=== PATIENT | female | born 1945 | race Caucasian/White ===

== ENCOUNTER → 2018-06-09 07:51 | Outpatient (CLI) | payer OTHER, MEDICARE, SELFPAY | PROVIDERS: Family Provider Family Medicine; PCP Family Medicine; Visit Provider Obstetrics & Gynecology | DX: Z12.31 Encounter for screening mammogram for malignant neoplasm of breast (principal) | CPT/HCPCS: 77063; 77067 ==

== ENCOUNTER → 2018-07-21 08:19 | Outpatient (CLI) | payer OTHER, MEDICARE, SELFPAY ==
--- NOTE | 2018-07-21 08:27 | BD_ITS ---
STUDY: DUAL ENERGY X-RAY ABSORPTIOMETRY / DXA REASON FOR EXAM: Female, 73 years old. The patient is postmenopausal. Loss of height. TECHNIQUE: Bone Mineral Density (BMD) measurements of lumbar spine and bilateral hips were obtained. COMPARISON: Comparison is made with prior study dated July 02, 2002. FINDINGS: Lumbar Spine (L1-L4): g/cm2 (1.069) / T-score (-0.9) / Z-score (0.8) Findings are suggestive of normal bone density with a low fracture risk. Left Femur Total: g/cm2 (0.935) / T-score (-0.6) / Z-score (0.9) Left Femoral Neck: g/cm2 (0.861) / T-score (-1.3) / Z-score (0.5) Right Femur Total: g/cm2 (0.891) / T-score (-0.9) / Z-score (0.6) Right Femoral Neck: g/cm2 (0.855) / T-score (-1.3) / Z-score (0.4) The T-Scores on the most recent prior examination were: Lumbar Spine (L1-L4): There has been worsening of bone density since the previous examination. Left Femur Total: which represents a worsening of 10.1%. BD/Dexa Bone Density Study IMPRESSION: The patient is considered osteopenic as outlined below according to World Daniel Organization (WHO) criteria with a moderate fracture risk. There has been worsening of bone density since the previous examination. Reference Information: The T-score is the number of standard deviations above or below the standard which is normal for young adults at their peak bone mineral density. The World Health Organization (WHO) interprets the T-scores as follows: Above -1 Normal bone density Between -1 and -2.5 Osteopenia Equal to / or below -2.5 Osteoporosis As a practical clinical guideline, osteopenia may be graded as follows: Mild -1 through -1.5 Moderate -1.6 through -2.0 Severe -2.1 through -2.4 The Z-score is the number of standard deviations above or below age-matched controls. A Z-score of less than -1.5 would be considered abnormal. References: 1. NIH Osteoporosis and Related Bone Diseases http://www.osteo.org 2. International Society for Clinical Densitometry http://www.iscd.org 3. National Osteoporosis Foundation http://www.nof.org Electronically Signed: Antony Acevedo MD at 8:55 EDT Tel [phone], Service support ,
== END ==
PROVIDERS: Family Provider Family Medicine; PCP Family Medicine; Visit Provider Family Medicine
DX: Z78.0 Asymptomatic menopausal state (principal)
CPT/HCPCS: 77080

== ENCOUNTER → 2019-06-15 13:16 | Outpatient (CLI) | payer OTHER, MEDICARE, SELFPAY ==
--- NOTE | 2019-06-15 13:19 | BI_ITS ---
MAMMOGRAPHY - BILATERAL SCREENING REASON FOR EXAM: Female, 73 years old. Routine annual screening examination. PERTINENT HISTORY: Non-contributory. TECHNIQUE: Digital bilateral breast nikolai (3D mammographic acquisition) in the CC and MLO projections. 2-D mediolateral oblique (MLO) and craniocaudad (CC) views of both breasts were obtained. CAD: Full Field Digital Mammography with Computer Added Detection was performed. COMPARISON: Comparison is made with prior examination dated June 09, 2018 and June 02, 2017. FINDINGS: Breast Composition: The breasts are heterogeneously dense, which may obscure small masses. There are no dominant masses or suspicious calcifications. Stable small bilateral axillary lymph nodes. No other significant abnormalities are identified. There has been no significant change since the prior study. BI/SCREEN MAMM (CAD) W/NIKOLAI BILAT IMPRESSION: Stable bilateral screening mammogram. Yearly follow-up mammogram recommended. (A) ASSESSMENT CATEGORY: BIRADS Category 2: Benign. A letter regarding these results will be sent to the patient by the facility within 30 days. Approximately 10% of breast cancers are not detected by mammography. A normal mammogram should not delay biopsy of a clinically suspicious abnormality. [id number] Electronically Signed: Antony Acevedo, at 15:29 EDT , Service support ,
== END ==
PROVIDERS: Family Provider Family Medicine; PCP Family Medicine; Referring Provider Family Medicine; Visit Provider Family Medicine
DX: Z12.31 Encounter for screening mammogram for malignant neoplasm of breast (principal)
CPT/HCPCS: 77063; 77067

== ENCOUNTER → 2020-02-22 07:08 | Outpatient (CLI) | payer OTHER, MEDICARE, SELFPAY | PROVIDERS: PCP Family Medicine; Referring Provider Family Medicine; Visit Provider Family Medicine | DX: R19.7 Diarrhea, unspecified (principal) | CPT/HCPCS: 87177; 87209; 87506 ==

== ENCOUNTER → 2020-05-02 15:31 | Outpatient (CLI) | payer OTHER, MEDICARE, SELFPAY ==
[2020-05-02 17:56] LABS: AST(SGOT) 21 U/L (15-37); Alanine Aminotransfer ALT/SGPT 20 U/L (13-56); Alkaline Phosphatase 79 U/L (45-117); Anion Gap 3 (5-15); BUN 18 mg/dL (7-18); BUN/Creat Ratio 19.6 RATIO (10-20); CRP < 2.90 mg/L (0.0-3.0); Calcium,Total 9.1 mg/dL (8.5-10.1); Chloride 104 mmol/L (98-107); Creatinine, Serum 0.92 mg/dL (0.55-1.02); EST Glomerular Filtration Rate 64 mL/min (>60); Est Glom Filt Rate - Afr Amer 77 mL/min (>60); Glucose 78 mg/dL (74-106); Potassium 3.6 mmol/L (3.5-5.1); Sodium Level 138 mmol/L (136-145)
[2020-05-04 16:09] LABS: Endomysial Antibody IgA Negative (Negative)
[2020-05-04 18:22] LABS: Immunoglobulin A 453 mg/dL (64-422); t-Transglutaminase IgA <2 U/mL (0-3)
== END ==
PROVIDERS: PCP Family Medicine; Referring Provider Internal Medicine Gastroenterology; Visit Provider Internal Medicine Gastroenterology
DX: R19.7 Diarrhea, unspecified (principal)
CPT/HCPCS: 36415; 80053; 82784; 83516; 86140; 86255

== ENCOUNTER → 2020-06-22 11:50 | Outpatient (CLI) | payer OTHER, MEDICARE, SELFPAY ==
--- NOTE | 2020-06-22 11:54 | BI_ITS ---
MAMMOGRAPHY - BILATERAL SCREENING REASON FOR EXAM: Female, 74 years old. Routine annual screening examination. PERTINENT HISTORY: Non-contributory. TECHNIQUE: Digital bilateral breast nikolai (3D mammographic acquisition) in the CC and MLO projections. 2-D mediolateral oblique (MLO) and craniocaudad (CC) views of both breasts were obtained. CAD: Full Field Digital Mammography with Computer Added Detection was performed. COMPARISON: Comparison is made with prior examination dated 06/15/2019 and 06/09/2018. FINDINGS: Breast Composition: The breasts are heterogeneously dense, which may obscure small masses. There are no dominant masses or suspicious calcifications. No other significant abnormalities are identified. There has been no significant change since the prior study. BI/SCREEN MAMM (CAD) W/NIKOLAI BILAT IMPRESSION: Stable bilateral screening mammogram. Yearly follow-up mammogram recommended. (A) ASSESSMENT CATEGORY: BIRADS Category 1: Negative. A letter regarding these results will be sent to the patient by the facility within 30 days. Approximately 10% of breast cancers are not detected by mammography. A normal mammogram should not delay biopsy of a clinically suspicious abnormality. [id number] Electronically Signed: Antony Acevedo, at 13:02 EDT , Service support ,
== END ==
PROVIDERS: PCP Family Medicine; Referring Provider Family Medicine; Visit Provider Family Medicine
DX: Z12.31 Encounter for screening mammogram for malignant neoplasm of breast (principal)
CPT/HCPCS: 77063; 77067

== ENCOUNTER → 2020-07-25 13:55 | Outpatient (CLI) | payer OTHER, MEDICARE, SELFPAY ==
--- NOTE | 2020-07-25 14:00 | BD_ITS ---
STUDY: DUAL ENERGY X-RAY ABSORPTIOMETRY / DXA REASON FOR EXAM: Female, 75 years old. [employer] -- HX OF HRT -- TAKES CALCIUM -- HAS BEEN ON FOSAMAX x2 YRS -- DOES HIGH AMOUNT OF EXERCISE -- MIKI OF 0.5 INCH TECHNIQUE: Bone Mineral Density (BMD) measurements of lumbar spine and bilateral hips were obtained. COMPARISON: Comparison is made with prior examination dated 07/21/2018. FINDINGS: Lumbar Spine (L1-L4): g/cm2 (1.085) / T-score (-0.7) / Z-score (1.0) Findings are suggestive of normal bone density with a low fracture risk. Increased kyphosis. Left Femur Total: g/cm2 (0.949) / T-score (-0.5) / Z-score (1.2) Left Femoral Neck: g/cm2 (0.914) / T-score (-0.9) / Z-score (0.9) Right Femur Total: g/cm2 (0.931) / T-score (-0.6) / Z-score (1.0) Right Femoral Neck: g/cm2 (0.912) / T-score (-0.9) / Z-score (0.9) The T-Scores on the most recent prior examination were: Lumbar Spine (L1-L4): There has been improvement of bone density since the previous examination. Left Femur Total: which represents an improvement of 1.5%. Right Femur Total: which represents an improvement of 4.5%. BD/Dexa Bone Density Study IMPRESSION: The patient is considered normal as outlined below according to World Daniel Organization (WHO) criteria with a low fracture risk. There has been improvement of bone density since the previous examination. Reference Information: The T-score is the number of standard deviations above or below the standard which is normal for young adults at their peak bone mineral density. The World Health Organization (WHO) interprets the T-scores as follows: Above -1 Normal bone density Between -1 and -2.5 Osteopenia Equal to / or below -2.5 Osteoporosis As a practical clinical guideline, osteopenia may be graded as follows: Mild -1 through -1.5 Moderate -1.6 through -2.0 Severe -2.1 through -2.4 The Z-score is the number of standard deviations above or below age-matched controls. A Z-score of less than -1.5 would be considered abnormal. References: 1. NIH Osteoporosis and Related Bone Diseases www osteo.org 2. International Society for Clinical Densitometry www iscd.org 3. National Osteoporosis Foundation www nof.org Electronically Signed: Antony Acevedo, at 14:05 EDT , Service support ,
== END ==
PROVIDERS: PCP Family Medicine; Referring Provider Family Medicine; Visit Provider Family Medicine
DX: Z78.0 Asymptomatic menopausal state (principal); Z13.820 Encounter for screening for osteoporosis
CPT/HCPCS: 77080

== ENCOUNTER → 2020-11-28 09:54 | Outpatient (CLI) | payer OTHER, MEDICARE, SELFPAY ==
--- NOTE | 2020-11-28 09:58 | RAD_ITS ---
STUDY: X-RAY - RIGHT SHOULDER REASON FOR EXAM: Female, 75 years old. Right shoulder pain for about a week TECHNIQUE: 4 view(s) of the shoulder. COMPARISON: None. FINDINGS: Normal glenohumeral articulation. Normal acromioclavicular joint. Normal acromion. Normal humeral head and visualized proximal humerus. There is periarticular soft tissue calcification consistent with a calcific tendinitis. Normal visualized pulmonary apex. RAD/Shoulder min 2 Views IMPRESSION: Calcific tendinitis. Electronically Signed: Antony Acevedo MD at 10:19 EST , Service support ,
== END ==
PROVIDERS: PCP Family Medicine; Referring Provider Family Medicine; Visit Provider Family Medicine
DX: M25.519 Pain in unspecified shoulder (principal)
CPT/HCPCS: 73030

== ENCOUNTER 2020-12-20 15:00 | Outpatient (RCR) | payer OTHER, MEDICARE, SELFPAY ==
--- NOTE | 2020-12-01 16:48 | HP.PTEVAL_ITS ---
Patient's Visit Information ROSHAN NEW is a 75 year old F referred to Physical Therapy by Dr. Em Barrett MD with a diagnosis of R shoulder strain. Date of Evaluation: 12/01/20 Physical Therapist: ISAURA Rosenberg - Visit Plan Frequency: 2x /Week Duration: 6 Weeks Plan: 2X/ week for 6 weeks for postural exercises, PROM>AAROM>AROM, scapular strength, RC strength, US and STM to calm down inflammation with HEP. Pt was super painful and could only tolerate PROM and AAROM supine ER and AAROM wand standing B arm extension behind her back. - Subjective Pt thinks that she did 2 things to cause her shoulder to hurt.... 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 She started doing [employer] with weights overhead and the same day it was icy and she went out to pound the ice and scoop it up and did not feel anything happend but the next few days she started with a lot of pain. She has improved since Friday. She is doing 3 advils and iceing 4 times per day. She is no longer in pain at rest. The pain is around the lateral shoulder. She has no neck pain and she does have some weakness in her shoulder. She hurts to lay on R shoulder. No Numbness and tingling. When it was at its worst she could not lift her hand to the mouse. She gave her a pain shot in her him. - Pain Right shoulder pain Pain Intensity (Out of 10): 2 Pain Intensity Range: 7 Comment: with movement - Objective R handed R 45# and L 40#. R shoulder flex 70 degrees, ABD 70 degrees, IR L1, ER 32 degrees... increase pain with all attempt at elevation. L shoulder flex WFL , abd WFL, ER 65 degrees and IR T6. Palpation: tender over the lateral/ anterior shoulder. L shoulder MMT 4/5 all planes. R shoulder NT due to pain. Discussed posture and to avoid any movment across her body. Continue ICING - Goals Goal 1:: I HEP Goal Time Frame: 4-6 Weeks Goal 2:: Be able to reach overhead at DC with no pain with the R arm Goal Time Frame: 4-6 Weeks Goal 3:: Increase R shoulder strength to 4/5 all planes without pain Goal Time Frame: 4-6 Weeks Goal 4:: Be able to use her R arm with 50% less pain Goal Time Frame: 4-6 Weeks - Rehabilitation Potential Rehabilitation Potential: Good - Anticipated Interventions Patient/Client Instruction: Educate patient on: Condition, Plan of Care For the Purpose of:: To decrease pain, To decrease swelling/inflammation, To i ncrease ROM, To improve nutrient delivery to tissue, To improve muscle performance and motor function, To improve ability to perform ADL's, To increase tolerance to activity/condition/position, To improve performance and independence with ADL's, To decrease level of supervision to perform tasks, To improve health of tissue, To decrease soft tissue restriction, To increase flexibility/ROM Therapeutic Exercise to Include: Strength training, Postural training, Flexibilty training, Neuromotor development, Passive ROM, Active ROM, Scapular Strength/Stabilization For the Purpose of:: To decrease pain, To increase ROM, To improve nutrient delivery to tissue, To improve muscle performance and motor function, To improve ability to perform ADL's, To increase tolerance to activity/condition/position, To improve performance and independence with ADL's, To decrease level of supervision to perform tasks, To improve health of tissue, To decrease soft tissue restriction, To increase flexibility/ROM Manual Therapy Techniques to Include: Passive ROM, Soft tissue mobilization For the Purpose of:: To decrease pain, To decrease swelling/inflammation, To increase ROM, To improve nutrient delivery to tissue, To improve muscle performance and motor function, To improve ability to perform ADL's, To increase tolerance to activity/condition/position, To improve performance and independence with ADL's, To decrease level of supervision to perform tasks, To improve health of tissue, To decrease soft tissue restriction, To increase flexibility/ROM Ultrasound (thermal/non thermal): Yes For the Purpose of:: To decrease pain, To decrease swelling/inflammation, To increase ROM, To improve nutrient delivery to tissue Thank you for the opportunity to evaluate your patient. For Medicare and Medicare HMO plans, please review the plan of care and approve it. It will need to be FAXED BACK to us at [phone] for Medicare purposes. For Medicare only, by signing this I certify the plan of care. Please let me know if there are questions or concerns regarding this plan of care. Physician Signature: Date:
--- NOTE | 2021-01-03 13:18 | HP.PT.NRP ---
ROSHAN NEW was seen in my office for initial evaluation on 12/01/20. The following Plan of Care was established for this patient: Initial Frequency: 2x /Week Initial Duration: 6 Weeks Patient/Client Instruction: Educate patient on: Condition, Plan of Care For the Purpose of:: To decrease pain, To decrease swelling/inflammation, To increase ROM, To improve nutrient delivery to tissue, To improve muscle performance and motor function, To improve ability to perform ADL's, To increase tolerance to activity/condition/position, To improve performance and independence with ADL's, To decrease level of supervision to perform tasks, To improve health of tissue, To decrease soft tissue restriction, To increase flexibility/ROM Therapeutic Exercise to Include: Strength training, Postural training, Flexibilty training, Neuromotor development, Passive ROM, Active ROM, Scapular Strength/Stabilization For the Purpose of:: To decrease pain, To increase ROM, To improve nutrient delivery to tissue, To improve muscle performance and motor function, To improve ability to perform ADL's, To increase tolerance to activity/condition/position, To improve performance and independence with ADL's, To decrease level of supervision to perform tasks, To improve health of tissue, To decrease soft tissue restriction, To increase flexibility/ROM Manual Therapy Techniques to Include: Passive ROM, Soft tissue mobilization For the Purpose of:: To decrease pain, To decrease swelling/inflammation, To increase ROM, To improve nutrient delivery to tissue, To improve muscle performance and motor function, To improve ability to perform ADL's, To increase tolerance to activity/condition/position, To improve performance and independence with ADL's, To decrease level of supervision to perform tasks, To improve health of tissue, To decrease soft tissue restriction, To increase flexibility/ROM Ultrasound (thermal/non thermal): Yes For the Purpose of:: To decrease pain, To decrease swelling/inflammation, To increase ROM, To improve nutrient delivery to tissue This patient was last seen in our office 12/20/20. Pertinent comments regarding their Physical therapy will appear below: Pt has been doing her exercises at home and she is 98% better and will be discharged at this time. At this point I will be discontinuing this patient from physical therapy. I would be happy to see this patient again in the future if found appropriate by the physician. Thank you! Rosmery Huertas, MPT
== END 2020-12-20 19:00 | disposition home or self-care (01) ==
LOC: PT 15:00
PROVIDERS: PCP Family Medicine; Referring Provider Family Medicine; Visit Provider Family Medicine
DX: S46.911D Strain of unspecified muscle, fascia and tendon at shoulder and upper arm level, right arm, subsequent encounter (principal)
CPT/HCPCS: 97035; 97110; 97161

== ENCOUNTER → 2021-06-25 11:21 | Outpatient (CLI) | payer OTHER, MEDICARE, SELFPAY ==
--- NOTE | 2021-06-25 11:25 | BI_ITS ---
MAMMOGRAPHY - BILATERAL SCREENING REASON FOR EXAM: Female, 75 years old. Routine annual screening examination. PERTINENT HISTORY: Non-contributory. TECHNIQUE: Digital bilateral breast nikolai (3D mammographic acquisition) in the CC and MLO projections. 2-D mediolateral oblique (MLO) and craniocaudad (CC) views of both breasts were obtained. CAD: Full Field Digital Mammography with Computer Added Detection was performed. COMPARISON: Comparison is made with prior study 09/21/2020 06/15/2019. FINDINGS: Breast Composition: The breasts are heterogeneously dense, which may obscure small masses. There are no dominant masses or suspicious calcifications. Stable small benign-appearing bilateral axillary lymph nodes. No other significant abnormalities are identified. There has been no significant change since the prior study. BI/SCRN MAMM (CAD)W/NIKOLAI BILAT IMPRESSION: Stable bilateral screening mammogram. Yearly follow-up mammogram recommended. (A) ASSESSMENT CATEGORY: BIRADS Category 2: Benign. A letter regarding these results will be sent to the patient by the facility within 30 days. Approximately 10% of breast cancers are not detected by mammography. A normal mammogram should not delay biopsy of a clinically suspicious abnormality. [id number] Electronically Signed: Antony Acevedo MD at 12:34 EDT , Service support ,
== END ==
PROVIDERS: PCP Family Medicine; Visit Provider Family Medicine
DX: Z12.31 Encounter for screening mammogram for malignant neoplasm of breast (principal)
CPT/HCPCS: 77063; 77067

== ENCOUNTER → 2022-07-01 | Outpatient (CLI) | payer OTHER, MEDICARE, SELFPAY ==
--- NOTE | 2022-07-01 07:12 | BI_ITS ---
MAMMOGRAPHY - BILATERAL SCREENING 3-D TOMOSYNTHESIS REASON FOR EXAM: Female, 76 years old. screening PERTINENT HISTORY: No significant family history. TECHNIQUE: 2-D mammograms and 3-D Tomosynthesis of the breast (s) were performed. CAD was performed. COMPARISON: 06/25/2021 FINDINGS: The breast composition is heterogeneously dense that can obscure small breast masses. Scattered benign calcifications are seen. No dense spiculated masses or suspicious microcalcifications are identified. No architectural distortion is identified. There is no skin thickening or retraction. There has been no significant change since the prior study. BI/SCRN MAMM (CAD)W/NIKOLAI BILAT IMPRESSION: No mammographic signs of malignancy. Routine yearly mammograms recommended. ASSESSMENT CATEGORY: BIRADS Category 1: Negative. A letter regarding these results will be sent to the patient by the facility within 30 days. FOLLOW UP RECOMMENDATION: Yearly follow up mammogram recommended. (A) Approximately 10% of breast cancers are not detected by mammography. A normal mammogram should not delay biopsy of a clinically suspicious abnormality. Electronically Signed: Baldemar Marroquin MD at 8:08 EDT ,
== END | disposition home or self-care (01) ==
LOC: OPBI 07:09
PROVIDERS: PCP Family Medicine; Referring Provider Family Medicine; Visit Provider Family Medicine
DX: Z12.31 Encounter for screening mammogram for malignant neoplasm of breast (principal)
CPT/HCPCS: 77063; 77067

== ENCOUNTER → 2023-07-09 | Outpatient (CLI) | payer OTHER, MEDICARE, SELFPAY ==
--- NOTE | 2023-07-09 07:10 | BI_ITS ---
MAMMOGRAPHY - BILATERAL SCREENING REASON FOR EXAM: Female, 78 years old. Routine annual screening examination. PERTINENT HISTORY: Non-contributory. TECHNIQUE: Digital bilateral breast nikolai (3D mammographic acquisition) in the CC and MLO projections. 2-D mediolateral oblique (MLO) and craniocaudad (CC) views of both breasts were obtained. CAD: Full Field Digital Mammography with Computer Added Detection was performed. COMPARISON: Comparison is made with prior study July 01, 2022 and June 25, 2021. FINDINGS: Breast Composition: The breasts are heterogeneously dense, which may obscure small masses. There are no dominant masses or suspicious calcifications. Stable small benign-appearing bilateral axillary lymph nodes. No other significant abnormalities are identified. There has been no significant change since the prior study. BI/SCRN MAMM (CAD)W/NIKOLAI BILAT IMPRESSION: Stable bilateral screening mammogram. Yearly follow-up mammogram recommended. (A) ASSESSMENT CATEGORY: BIRADS Category 2: Benign. A letter regarding these results will be sent to the patient by the facility within 30 days. Approximately 10% of breast cancers are not detected by mammography. A normal mammogram should not delay biopsy of a clinically suspicious abnormality. [id number] Electronically Signed: Antony Acevedo MD at 8:41 EDT ,
== END | disposition home or self-care (01) ==
LOC: OPBI 07:09
PROVIDERS: PCP Family Medicine; Referring Provider Family Medicine; Visit Provider Family Medicine
DX: Z12.31 Encounter for screening mammogram for malignant neoplasm of breast (principal)
CPT/HCPCS: 77063; 77067

== ENCOUNTER → 2023-09-16 | Outpatient (CLI) | payer OTHER, MEDICARE, SELFPAY ==
[2023-09-16 09:28] LABS: Erythrocyte Sedimentation Rate 9 mm/hr (0-30)
[2023-09-16 09:29] LABS: Absolute Lymphocyte Count 1.76 X10^3/uL (0.83-4.51); Absolute Neutrophil Count 2.7 X10^3/uL (2.0-7.7); Basophil# 0.04 X10^3/uL; Basophil% 0.7 % (0-1); Eosinophil# 0.11 X10^3/uL; Eosinophils% 2.1 % (0-5); Hematocrit 41.7 % (37-47); Hemoglobin 13.4 g/dL (12.0-15.0); Lymphocyte # 1.76 X10^3/ul (0.83-4.51); Lymphocyte % 32.9 % (19-41); Mean Corp Hgb Conc 32.1 g/dL (32-36); Mean Corpuscular Hgb 30.8 pg (27.0-32.0); Mean Corpuscular Volume 95.9 fL (81-99); Monocyte# 0.69 X10^3/uL; Monocyte% 12.9 % (0-10); NRBC Flagged by Analyzer 0 % (0-5); Neutrophil # 2.74 X10^3/uL (2.7-7.7); Neutrophil % 51.2 % (47-70); Platelet Count 254 K/mm3 (150-450); RBC Distribution Width CV 12.7 % (11.6-14.6); Red Blood Count 4.35 M/mm3 (4.2-5.4); White Blood Count 5.4 K/mm3 (4.4-11.0)
[2023-09-16 09:52] LABS: AST(SGOT) 20 U/L (15-37); Alanine Aminotransfer ALT/SGPT 22 U/L (13-56); Albumin, Serum 3.8 g/dL (3.2-5.0); Alkaline Phosphatase 74 U/L (45-117); Anion Gap 4 (5-15); BUN 11 mg/dL (7-18); BUN/Creat Ratio 13.8 RATIO (10-20); CRP < 2.90 mg/L (0.0-3.0); Calcium,Total 9.2 mg/dL (8.5-10.1); Chloride 107 mmol/L (98-107); EST Glomerular Filtration Rate 74 mL/min (>60); Est Glom Filt Rate - Afr Amer 90 mL/min (>60); Free T3 2.7 pg/mL (2.18-3.98); Glucose 83 mg/dL (74-106); LDH 180 U/L (84-246); Potassium 3.7 mmol/L (3.5-5.1); Protein, Total 7.8 g/dL (6.4-8.2); Sodium Level 140 mmol/L (136-145); T4 Free Direct 0.98 ng/dL (0.76-1.46); Thyroid Stim Hormone (TSH) 3.26 uIU/mL (0.358-3.74)
[2023-09-19 18:07] LABS: Anti-Centromere B Ab <0.2 AI (0.0-0.9); Anti-Chromatin 0.2 AI (0.0-0.9); Anti-Jo <0.2 AI (0.0-0.9); Anti-Scleroderma-70 AB <0.2 AI (0.0-0.9); Anti-dsDNA Ab 1 IU/mL (0-9); Beef <0.10 kU/L (Class 0); Chocolate <0.10 kU/L (Class 0); Codfish <0.10 kU/L (Class 0); Corn <0.10 kU/L (Class 0); Egg, Whole <0.10 kU/L (Class 0); Milk (Cow) <0.10 kU/L (Class 0); Mussels <0.10 kU/L (Class 0); Peanut <0.10 kU/L (Class 0); Pork <0.10 kU/L (Class 0); RNP Ab <0.2 AI (0.0-0.9); SJOGREN'S Anti-SS-A test 5.7 AI (0.0-0.9); SJOGREN'S Anti-SS-B test < 0.2 AI (0.0-0.9); Salmon <0.10 kU/L (Class 0); Shrimp <0.10 kU/L (Class 0); Smith Ab <0.2 AI (0.0-0.9); Soybean <0.10 kU/L (Class 0); Tuna <0.10 kU/L (Class 0); Wheat <0.10 kU/L (Class 0)
[2023-09-20 00:06] LABS: Cytoplasmic Ab (C-ANCA) <1:20 titer (Neg:<1:20); Endomysial Antibody IgA Negative (Negative); Immunoglobulin A 481 mg/dL (64-422); Immunoglobulin E 11 IU/mL (6-495); Immunoglobulin G 1098 mg/dL (586-1602); Immunoglobulin M 217 mg/dL (26-217); Perinuclear Ab (P-ANCA) <1:20 titer (Neg:<1:20); t-Transglutaminase IgA <2 U/mL (0-3)
[2023-09-22 00:07] LABS: Calprotectin, Stool 136 ug/g (0-120)
[2023-09-25 14:09] LABS: Giardia Lamblia, Stool EIA Negative (Negative); Pancreatic Elastase, Fecal 170 (>200)
== END | disposition home or self-care (01) ==
PROVIDERS: PCP Family Medicine; Referring Provider Internal Medicine Gastroenterology; Visit Provider Internal Medicine Gastroenterology
DX: K52.831 Collagenous colitis (principal); K59.09 Other constipation
CPT/HCPCS: 36415; 80053; 82653; 82784; 82785; 83516; 83615; 83630; 83993; 84439; 84443; 84481; 85025; 85652; 86003; 86005; 86140; 86225; 86235; 86255; 86256; 86335; 87177; 87209; 87329; 87493; 87506

== ENCOUNTER → 2023-09-20 | Outpatient (CLI) | payer OTHER, MEDICARE, SELFPAY ==
--- NOTE | 2023-09-20 07:56 | RAD_ITS ---
STUDY: XR Abdomen 1 View 09/20/2023 8:09 AM REASON FOR EXAM: Female, 78 years old. ABDOMINAL PAIN SITZ day 3 TECHNIQUE: XR Abdomen 1 View COMPARISON: None FINDINGS: There is single sitz marker in the left upper quadrant. There is no demonstrated free abdominal air. The visualized liver, spleen and kidneys are grossly normal in size and morphology. Normal soft tissue structures. There are diffuse degenerative changes of the visualized lumbar spine. RAD/Abdomen Single View IMPRESSION: There is single sitz marker in the left upper quadrant. Electronically Signed: Lane Cosby MD at 16:28 EST ,
== END | disposition home or self-care (01) ==
LOC: RAD 07:53
PROVIDERS: PCP Family Medicine; Referring Provider Internal Medicine Gastroenterology; Visit Provider Internal Medicine Gastroenterology
DX: K52.831 Collagenous colitis (principal); K59.09 Other constipation
CPT/HCPCS: 74018

== ENCOUNTER → 2023-09-22 | Outpatient (CLI) | payer OTHER, MEDICARE, SELFPAY ==
--- NOTE | 2023-09-22 07:55 | RAD_ITS ---
INDICATION: SITZ day 5 EXAMINATION/TECHNIQUE: X-RAY - XR Abdomen 1 View COMPARISON: Prior study dated: 09/20/2023. FINDINGS: BOWEL GAS PATTERN: Non-obstructive. Single marker is again seen in the region of the splenic flexure essentially unchanged in position since previous exam. FREE AIR: Not assessed on a single supine view. ORGANOMEGALY: Not seen. CALCIFICATIONS: No abnormal calcifications observed. LOWER CHEST: No acute pathology. BONES AND SOFT TISSUES: No acute pathology. RAD/Abdomen Single View IMPRESSION: Single Sitz marker in stable position since the previous exam. Electronically Signed: Baljeet Chen MD at 9:00 EST ,
== END | disposition home or self-care (01) ==
LOC: RAD 07:47
PROVIDERS: PCP Family Medicine; Referring Provider Internal Medicine Gastroenterology; Visit Provider Internal Medicine Gastroenterology
DX: K52.831 Collagenous colitis (principal); K59.09 Other constipation
CPT/HCPCS: 74018

== ENCOUNTER → 2023-12-02 | Outpatient (CLI) | payer OTHER, MEDICARE, SELFPAY ==
--- OUTSIDE RECORDS SUMMARY | 2023-12-02 06:46 | XMS RPT_ITS | CCD ---
Author Name Unknown Address [address] [place] [address] Organization [facility] Care Team Providers Care Appointment Specialist Name Role Phone Em Barrett Primary Care Provider [phone] GREG LEAVITT Attending Unavailable LUIS SALES Referring Unavailable EM BARRETT Primary Care Unavailable GREG LEAVITT Attending Unavailable LUIS SALES Referring Unavailable EM BARRETT Primary Care Unavailable GREG LEAVITT Attending Unavailable LUIS SALES Referring Unavailable EM BARRETT Primary Care Unavailable LUIS SALES Attending Unavailable EM BARRETT Primary Care Unavailable Medications Completed/Discontinued Medications Medication Drug Class(es) Dates Sig (Normalized) Sig (Original) aspirin 81 mg delayed release oral tablet (5 sources) Platelet Aggregation Inhibitor, Nonsteroidal Anti-inflammatory Drug Start: 07-17-2011 take 1 tablet by mouth once daily aspirin, enteric coated (ECOTRIN LOW STRENGTH) 81 mg ORAL EC tablet Take 1 tablet by mouth once daily. 0 07/17/2011 Active Problems Active Problems Problem Classification Problem Date Documented Da te Episodic/Chronic Menopausal disorders (5 sources) Atrophic vaginitis; Translations: [Postmenopausal atrophic vaginitis] Onset: 01-22-2012 01-22-2012 Chronic Nonmalignant breast conditions (5 sources) Fibrocystic disease of breast; Translations: [Diffuse cystic mastopathy of unspecified breast] Onset: 01-10-2010 01-10-2010 Chronic Other connective tissue disease (6 sources) Muscle weakness; Translations: [Muscle weakness (generalized)] Onset: 06-17-2023 06-17-2023 Episodic Other gastrointestinal disorders (9 sources) Incontinence of feces; Translations: [Full incontinence of feces] Onset: 07-09-2021 07-09-2021 Episodic Past or Other Problems Problem Classification Problem Date Documented Da te Episodic/Chronic Allergic reactions (10 sources) Radiation-induced dermatosis; Translations: [Other skin changes due to chronic exposure to nonionizing radiation] Onset: 11-28-2006 08-02-2010 Episodic Other circulatory disease (5 sources) Non-neoplastic nevus; Translations: [Nevus, non-neoplastic] Onset: 05-31-2008 05-31-2008 Episodic Other gastrointestinal disorders (1 source) Full incontinence of feces; Translations: [Incontinence of feces, unspecified fecal incontinence type] Onset: 07-09-2021 Episodic Other inflammatory condition of skin (5 sources) Pruritus of skin; Translations: [Pruritus, unspecified] Onset: 08-29-2008 08-29-2008 Episodic Other injuries and conditions due to external causes (5 sources) Superficial injury; Translations: [Unspecified multiple injuries, initial encounter] Onset: 08-29-2008 08-29-2008 Episodic Other screening for suspected conditions (not mental disorders or infectious disease) (5 sources) Mammography abnormal; Translations: [Other abnormal and inconclusive findings on diagnostic imaging of breast] Onset: 04-20-2009 04-20-2009 Episodic Other skin disorders (5 sources) Seborrheic keratosis; Translations: [Other seborrheic keratosis] Onset: 11-28-2006 11-28-2006 Episodic Other skin disorders (5 sources) Disorder of skin pigmentation; Translations: [Disorder of pigmentation, unspecified] Onset: 05-31-2008 05-31-2008 Episodic Other skin disorders (5 sources) Scar conditions and fibrosis of skin; Translations: [Scar conditions and fibrosis of skin] Onset: 10-25-2008 10-25-2008 Episodic Viral infection (5 sources) Verruca vulgaris; Translations: [Viral wart, unspecified] Onset: 11-28-2006 11-28-2006 Episodic Results Test Name Value Interpretation Reference Range Facil ity Vital Signs Date Time Vital Sign Value Performing Clinician Laith ray 06-24-2022 09:26-0400 Body height 160.5 cm Luis Sales MD Work Phone: [facility] 06-24-2022 09:26-0400 Body weight 63.78 kg Luis Sales MD Work Phone: [facility] 06-24-2022 09:26-0400 Diastolic blood pressure 78 mm[Hg] Luis Sales MD Work Phone: [facility] 06-24-2022 09:26-0400 Systolic blood pressure 130 mm[Hg] Luis Sales MD Work Phone: [facility] Encounters Encounter Date Encounter Type Care Provider Facility Start: 07-15-2023 End: 07-15-2023 ambulatory Greg Duke PT Work Phone: [facility] Physical Therapy Procedures Date Procedure Procedure Detail Performing Clinician Start: 06-22-2020 Mammography Luis denise MD Work Phone: Start: 05-11-2020 Colonoscopy Luis denise MD Work Phone: Start: 01-15-2012 Lipid 1996 panel - S ap or Plasma Greg Duke PT Work Phone: Plan of Treatment Date Care Activity Detail Author Start: 05-11-2030 Colonoscopy COLONOSCOPY [facility] Start: 05-11-2030 COLORECTAL CANCER SCREENING COLORECTAL CANCER SCREENING [facility] Start: 06-13-2023 Influenza vaccination INFLUENZA (#1) [facility] Start: 11-16-2022 Covid-19 Vaccine (6 - Moderna series) Covid-19 Vaccine (6 - Moderna series) [facility] Start: 10-13-2022 ADVANCE DIRECTIVE DISCUSSION ADVANCE DIRECTIVE DISCUSSION [facility] Start: 10-13-2022 DEPRESSION ASSESSMENT DEPRESSION ASS ESSMENT [facility] Start: 06-13-2022 Influenza vaccination INFLUENZA (#1) [facility] Start: 10-13-2021 ADVANCE DIRECTIVE DISCUSSION ADVANCE DIRECTIVE DISCUSSION [facility] Start: 06-22-2021 Mammography MAMMOGRAM [facility] Start: 01-14-2017 Lipid 1996 panel - S ap or Plasma Lipid Screening [facility] Start: 01-14-2017 LIPID SCREEN LIPID SCREEN [facility] Start: 2012 Pneumococcal Vaccine : 65+ (1 - PCV) Pneumococcal Vaccine: 65+ (1 - PCV) [facility] Start: 2012 PNEUMOCOCCAL: 65+ (1 - PCV) PNEUMOCOCCAL: 65+ (1 - PCV) [facility] Start: 1997 SHINGRIX VACCINE (1 of 2) SHINGRIX V ACCINE (1 of 2) [facility] Start: 1992 COLOGUARD (FIT-DNA) COLOGUARD (FIT-D NA) [facility] Start: [address] COLONOGRAPHY [facility] Start: 1992 DIABETES SCREEN DIABETES SCREEN [facility] Start: 1992 Diabetes Screening Diabetes Screenin g [facility] Start: 1992 FECAL OCCULT BLOOD FECAL OCCULT BLOO D [facility] Start: 1992 SIGMOIDOSCOPY SIGMOIDOSCOPY [facility] Start: 1966 Urine microalbumin profile [facility] Start: 1965 HEPATITIS C SCREENING HEPATITIS C SC REENING [facility] Start: 1959 Adult depression scr eening assessment DEPRESSION SCREENING [facility] Start: [birth year]06-1946 COVID-19 VACCINE (#1) COVID-19 VACCI NE (#1) [facility] Payers Date Payer Category Payer Medicare [id number] 2021 Private Health Insurance HUMANA HUMANA MEDICARE SUPPLEMENT [id number] 2021-Present [phone] [address] [address] [place] [address] Indemnity [id number] 2020 Unknown [facility] [place] PPO [employer] [id number] 2020-Present [phone] [address] [place] [address] PPO [id number] 2020 Unknown [id number] 2012 Medicare [id number] 2012 Medicare [id number] Social History Date Type Detail Facility Start: [facility] Start: 06-24-2022 Tobacco use and exposure Smoke less tobacco non-user [facility] Start: 06-24-2022 End: 06-26-2023 Alcohol intake Current drinker of alcohol (finding) [facility] Start: 01-22-2012 History SDOH Alcohol Comment occasional 4 per month [facility] Start: 1945 Sex Assigned At Not on file C [facility] Start: 06-24-2022 End: 06-17-2023 History of Social function [facility] Start: 06-24-2022 End: 06-17-2023 Tobacco use panel [facility] National Score (1-10 0), lower number is lower risk 66 [facility] Start: 07-03-2021 Gender identity Identifies as female gender (finding) [facility] Start: 07-03-2021 Sexual orientation Heterosexual (fin ding) [facility] Clinical Notes 07-09-2021 to 07-15-2023 Greg Leavitt, PT - 07/15/2023 6:53 AM Greg Turner, PT - 07/01/2023 11:06 AM Greg Turner, PT - 06/17/2023 8:45 AM Darci Sales MD - 06/24/2022 9:16 AM EDT Note Date & Type Note Facility 07-15-2023 Note HNO ID: [id number] Author: Greg Leavitt, PT Service: ? Author Type: Physical Therapist Type: Progress Notes Filed: 07/15/2023 7:21 AM Note Text: Episode Visit Count: 3 Therapist That Will Accept/Oversee The Plan Of Care: Greg Duke Start of Care Date: 06/17/23 Onset Date: 05/17/23 Plan of Care Certification Date: 06/17/23 Next Certification Due Date: 08/16/23 Patient Identified by Name and Date of : Yes REHABILITATION AND SPORTS THERAPY PHYSICAL THERAPY DISCONTINUANCE OF CARE PLAN OF CARE UPDATE: Assessment: Leatha Zamudio is discontinued from Physical Therapy services due to goal achievement and maximal benefit.. Pelvic floor muscle assessment deferred this date due to patient request. Patient was seen for 3 visits from Start of Care Date: 06/17/23 to 07/15/2023 and treatment included: Therapeutic exercise and Self-fpc management. Goals for Episode of Care: created on 06/17/23 Updated on: 07/15/23 Patient demonstrates independence and compliance with home exercise Program.-MET Patient to increase strength of pelvic floor to Power: at least 3/5 in order to improve bowel control.-N/T Patient to increase endurance of pelvic floor to at least 6 seconds to improve bowel control.-N/T Patient reports increased ability to fully empty bowels at least 75% of the time to normalize bowel function.-MET Patient reports at least 75% improvement in fecal incontinence compared to IE.-MOSTLY MET Patient Goals: improve bowel function SUBJECTIVE: Pt reports excellent compliance with HEP. Pt reports one episode of fecal smearing since last session, no other fecal incontinence. Pt reports thinking bread and brussel sprouts have been negatively impacting bowels, is trying to be more aware of diet. Pt reports improved ability to empty bowels when using a squatty potty, doesn't feel like she needs to strain and is able to empty well. Pt reports feeling comfortable continuing HEP on her own at home. Pain: Pain Pain Level: 0 Post Treatment Pain Post Treatment Pain Level: 0 PROMIS Scales Higher is Better 07/13/2023 06/16/2023 2021 Phys Func - Score 47 (within normal limits) 48 (within normal limits) 51 (within normal limits) Phys Func - Percentile 38 % 42 % 54 % Self-Eff Symptom - Score 37 (Low) 46 (Average) 43 (Average) Self-Eff Symptom - Percentile 10 % 34 % 24 % T-scores: mean of general population = 50. 5 points is clinically meaningfully difference Percentiles provide an indication of how the patient's score ranks in relation to the general population. Higher percentile rankings indicate better function/quality of life. 50th percentile is the average of the general population and indicates half of respondents had a worse score. OBJECTIVE MEASURES WITH LEVEL OF FUNCTION: Pelvic Floor Incomplete emptying: No Fecal incontinence: Yes Smearing/Staining: (1x since last visit) Pelvic Floor Muscle Assessment Consent for pelvic assessment/testing and treatment: (PF mm assessment deferred due to pt request.) TREATMENT: Self-Assisted Management: 1: Reassessment 2: Reviewed benefits of meeting with a nutritioninst for further assessment regarding diet, impact of diet on bowels 3: Reviewed importance of continued good compliance with HEP 4: Discussed discharge planning Skilled Intervention: Skilled judgment in the selection of proper modification for activity of daily living/home management based on clinical presentation, deficits, and needs. Billing Self-Care/Home Management Treatment Minutes: 25 Skilled Treatment Time Minutes (timed and untimed codes): 25 Total Session Time (minutes): 25 Session Start Time : 652 Session Stop Time : 717 Greg Duke, PT [facility] 07-15-2023 History of Presen t illness Narrative Episode Visit Count: 3 Therapist That Will Accept/Oversee The Plan Of Care: Greg Duke Start of Care Date: 06/17/23 Onset Date: 05/17/23 Plan of Care Certification Date: 06/17/23 Next Certification Due Date: 08/16/23 Patient Identified by Name and Date of : Yes REHABILITATION AND SPORTS THERAPY PHYSICAL THERAPY DISCONTINUANCE OF CARE PLAN OF CARE UPDATE: Assessment: Leatha Zamudio is discontinued from Physical Therapy services due to goal achievement and maximal benefit.. Pelvic floor muscle assessment deferred this date due to patient request. Patient was seen for 3 visits from Start of Care Date: 06/17/23 to 07/15/2023 and treatment included: Therapeutic exercise and Self-fpc management. Goals for Episode of Care: created on 06/17/23 Updated on: 07/15/23 Patient demonstrates independence and compliance with home exercise Program.-MET Patient to increase strength of pelvic floor to Power: at least 3/5 in order to improve bowel control.-N/T Patient to increase endurance of pelvic floor to at least 6 seconds to improve bowel control.-N/T Patient reports increased ability to fully empty bowels at least 75% of the time to normalize bowel function.-MET Patient reports at least 75% improvement in fecal incontinence compared to IE.-MOSTLY MET Patient Goals: improve bowel function SUBJECTIVE: Pt reports excellent compliance with HEP. Pt reports one episode of fecal smearing since last session, no other fecal incontinence. Pt reports thinking bread and brussel sprouts have been negatively impacting bowels, is trying to be more aware of diet. Pt reports improved ability to empty bowels when using a squatty potty, doesn't feel like she needs to strain and is able to empty well. Pt reports feeling comfortable continuing HEP on her own at home. Pain: Pain Pain Level: 0 Post Treatment Pain Post Treatment Pain Level: 0 PROMIS Scales Higher is Better 07/13/2023 06/16/2023 2021 Phys Func - Score 47 (within normal limits) 48 (within normal limits) 51 (within normal limits) Phys Func - Percentile 38 % 42 % 54 % Self-Eff Symptom - Score 37 (Low) 46 (Average) 43 (Average) Self-Eff Symptom - Percentile 10 % 34 % 24 % T-scores: mean of general population = 50. 5 points is clinically meaningfully difference Percentiles provide an indication of how the patient's score ranks in relation to the general population. Higher percentile rankings indicate better function/quality of life. 50th percentile is the average of the general population and indicates half of respondents had a worse score. OBJECTIVE MEASURES WITH LEVEL OF FUNCTION: Pelvic Floor Incomplete emptying: No Fecal incontinence: Yes Smearing/Staining: (1x since last visit) Pelvic Floor Muscle Assessment Consent for pelvic assessment/testing and treatment: (PF mm assessment deferred due to pt request.) TREATMENT: Self-Assisted Management: 1: Reassessment 2: Reviewed benefits of meeting with a nutritioninst for further assessment regarding diet, impact of diet on bowels 3: Reviewed importance of continued good compliance with HEP 4: Discussed discharge planning Skilled Intervention: Skilled judgment in the selection of proper modification for activity of daily living/home management based on clinical presentation, deficits, and needs. Billing Self-Care/Home Management Treatment Minutes: 25 Skilled Treatment Time Minutes (timed and untimed codes): 25 Total Session Time (minutes): 25 Session Start Time : 652 Session Stop Time : 717 Greg Duke PT documented in this encounter [facility] 07-01-2023 Note HNO ID: [id number] Author: Greg Leavitt PT Service: ? Author Type: Physical Therapist Type: Progress Notes Filed: 07/01/2023 11:38 AM Note Text: Episode Visit Count: 2 Therapist That Will Accept/Oversee The Plan Of Care: Greg Duke Start of Care Date: 06/17/23 Onset Date: 05/17/23 Plan of Care Certification Date: 06/17/23 Next Certification Due Date: 08/16/23 Patient Identified by Name and Date of : Yes REHABILITATION AND SPORTS THERAPY PHYSICAL THERAPY TREATMENT NOTE ASSESSMENT: Leatha Zamudio tolerated the session with no issues. She demonstrated difficulty with incomplete bowel emptying depending on diet, intermittent compliance with toileting techniques discussed. The patient will continue to benefit from ongoing skilled physical therapy to progress toward set goals. PLAN FOR NEXT VISIT: reassessment SUBJECTIVE: Pt reports making good progress up until two days ago after eating too many brussel sprouts. Pt reports some stool on pad after having a bowel movement after eating certain foods. Pt reports increased stress levels with 's health, work, her own health, etc. Pt reports good compliance with HEP exercises but has not been consistent with toileting techniques to fully empty bowels without straining. Pain: Pain Pain Level: 0 Post Treatment Pain Post Treatment Pain Level: 0 OBJECTIVE MEASURES WITH LEVEL OF FUNCTION: Pelvic Floor Incomplete emptying: Sometimes Fecal incontinence: Yes Smearing/Staining: (2x since last visit) TREATMENT: Therapeutic Exercise: 1: Verbally reviewed last week's HEP 2: Pt verbalized all exercises she started doing again from previous episode of care, does not feel need to review or add more exercises 3: *diaphragmatic breathing Skilled Intervention: Patient was educated in proper exercise technique and purpose for exercises. Provided written instruction for home exercise program to facilitate proper performance and compliance. Self-Assisted Management: 1: Reviewed toileting techniques to fully empty bowels without straining 2: *self-colon massage 3: Reviewed benefits of fiber intake to combat FI, benefits of meeting with supervisor pumping for more specific diet plan Skilled Intervention: Skilled judgment in the selection of proper modification for activity of daily living/home management based on clinical presentation, deficits, and needs. Provided written instruction for activities of daily living techniques to facilitate proper performance and compliance. Billing Therapeutic Exercise Treatment Minutes: 4 Self-Care/Home Management Treatment Minutes: 23 Skilled Treatment Time Minutes (timed and untimed codes): 27 Total Session Time (minutes): 27 Session Start Time : 1106 Session Stop Time : 1133 Greg Duke, PT [facility] 07-01-2023 History of Presen t illness Narrative Episode Visit Count: 2 Therapist That Will Accept/Oversee The Plan Of Care: Greg Duke Start of Care Date: 06/17/23 Onset Date: 05/17/23 Plan of Care Certification Date: 06/17/23 Next Certification Due Date: 08/16/23 Patient Identified by Name and Date of : Yes REHABILITATION AND SPORTS THERAPY PHYSICAL THERAPY TREATMENT NOTE ASSESSMENT: Leatha Zamudio tolerated the session with no issues. She demonstrated difficulty with incomplete bowel emptying depending on diet, intermittent compliance with toileting techniques discussed. The patient will continue to benefit from ongoing skilled physical therapy to progress toward set goals. PLAN FOR NEXT VISIT: reassessment SUBJECTIVE: Pt reports making good progress up until two days ago after eating too many brussel sprouts. Pt reports some stool on pad after having a bowel movement after eating certain foods. Pt reports increased stress levels with 's health, work, her own health, etc. Pt reports good compliance with HEP exercises but has not been consistent with toileting techniques to fully empty bowels without straining. Pain: Pain Pain Level: 0 Post Treatment Pain Post Treatment Pain Level: 0 OBJECTIVE MEASURES WITH LEVEL OF FUNCTION: Pelvic Floor Incomplete emptying: Sometimes Fecal incontinence: Yes Smearing/Staining: (2x since last visit) TREATMENT: Therapeutic Exercise: 1: Verbally reviewed last week's HEP 2: Pt verbalized all exercises she started doing again from previous episode of care, does not feel need to review or add more exercises 3: *diaphragmatic breathing Skilled Intervention: Patient was educated in proper exercise technique and purpose for exercises. Provided written instruction for home exercise program to facilitate proper performance and compliance. Self-Assisted Management: 1: Reviewed toileting techniques to fully empty bowels without straining 2: *self-colon massage 3: Reviewed benefits of fiber intake to combat FI, benefits of meeting with supervisor pumping for more specific diet plan Skilled Intervention: Skilled judgment in the selection of proper modification for activity of daily living/home management based on clinical presentation, deficits, and needs. Provided written instruction for activities of daily living techniques to facilitate proper performance and compliance. Billing Therapeutic Exercise Treatment Minutes: 4 Self-Care/Home Management Treatment Minutes: 23 Skilled Treatment Time Minutes (timed and untimed codes): 27 Total Session Time (minutes): 27 Session Start Time : 1106 Session Stop Time : 1133 Greg Duke PT documented in this encounter [facility] 09-14-2023 Note HNO ID: [id number] Author: Luis Sales MD Service: ? Author Type: Physician Type: Progress Notes Filed: 06/26/2023 4:16 PM Note Text: Non Emergency Services Ambulance Driver offered: Patient declines. Leatha is a 77 year old who presents for an annual gynecologic exam. Postmenopausal: Yes - s/p PAUL in 1998 HRT use: No. 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 Charles Wang at [facility] [place] HYSTEROSCOPY, DIAGNOSTIC (SEPARATE LAPS ABD PRTMANDOMENTUM DX W/WO SPEC BR/WA SPX Laparoscopy/TUBAL STERILIZATION PAST SURGICAL HISTORY OF 10/09/2017 laser surgeries on left eye RT/LT HEART CATHETERS 02/2006 CC AND CA, R AND L heart SIGMOIDOSCOPY 05/15/2021 TOTAL ABDOMINAL HYSTERECT W/WO RMVL TUBE OVARY 1998 Hysterectomy, PAUL/bso FAMILY HISTORY Adopted: Yes Problem Relation Age of Onset Stroke Mother Heart Mother 90 Cancer Father STOMACH AT AGE 93 SOCIAL HISTORY Social History Tobacco Use Smoking status: Never Smokeless tobacco: Never Vaping Use Vaping Use: Never used Substance Use Topics Alcohol use: Yes Comment: occasional 4 per month Drug use: No REVIEW OF SYSTEMS Abdomen: fecal incontinence much improved with pelvic floor PT Bladder: No dysuria, gross hematuria, urinary frequency, urinary urgency, or incontinence Breast: No breast lumps, nipple d/c, overlying skin changes, redness or skin retraction Allergies and current medication updated:Yes EXAM: BP 108/64 Ht 5' 3.19 (1.61m) Wt 141 lb 3.2 oz (64.0kg) BMI 24.86 kg/(m2). GENERAL: pleasant, female in no apparent distress BREAST: soft, non-tender, symmetric, no dominant mass, normal nipple-areolar complex, no lymphadenopathy, and no nipple discharge CHEST: Normal inspiratory effort ABDOMEN: soft, non-tender, and no masses PELVIC: external genitalia normal, no vulvar lesions, normal appearing perineal body and perianal region; atrophic vaginitis BIMANUAL: no adnexal masses, non-tender, and uterus surgically absent RECTOVAGINAL: rectovaginal exam negative for any masses or nodularity. NEURO: alert and oriented x3,exam grossly non-focal EXTREMITIES: normal ASSESSMENT/PLAN: 1) Health maintenance: Pap/HPV screening no longer needed Mammogram - ordered by pcp AND getting this month at [facility] Colon cancer screening: up to date with screening AND follows with [facility]: followed by PCP 2) Follow up one year or sooner as needed Luis Sales MD [facility] 06-17-2023 Note HNO ID: [id number] Author: Greg Leavitt, PT Service: ? Author Type: Physical Therapist Type: Progress Notes Filed: 06/17/2023 9:35 AM Note Text: Episode Visit Count: 1 Therapist That Will Accept/Oversee The Plan Of Care: Greg Duke Start of Care Date: 06/17/23 Onset Date: 05/17/23 Plan of Care Certification Date: 06/17/23 Next Certification Due Date: 08/16/23 Patient Identified by Name and Date of : Yes [facility] PHYSICAL THERAPY EVALUATION PLAN OF CARE: Assessment: Leatha Zamudio presents with chief complaint of fecal incontinence that interferes with bowel function . She presents with impairments in decreased pelvic floor strength; impaired bowel function. PROMIS? (Patient-Reported Outcomes Measurement Information System) scores were reviewed and physical function domain and self efficacy domain identified as within normal limits. Prognosis for therapy is Good due to: current objective clinical presentation . She will benefit from skilled therapy services to meet the goals established for this plan of care as noted below. Goals for Episode of Care: created on 06/17/23 through 08/16/23 Patient demonstrates independence and compliance with home exercise program. Patient to increase strength of pelvic floor to Power: at least 3/5 in order to improve bowel control. Patient to increase endurance of pelvic floor to at least 6 seconds to improve bowel control. Patient reports increased ability to fully empty bowels at least 75% of the time to normalize bowel function. Patient reports at least 75% improvement in fecal incontinence compared to IE. Patient Goals: improve bowel function Planned Interventions, Frequency, and Duration: Current Frequency: 1x every other week Duration: 4 weeks (reassess at 4 weeks and progress as indicated) Total Number of Visits Planned: 2 Planned Treatment Interventions: Therapeutic exercise (49175), Manual therapy (63188), Self-fpc management (80888), Patient/Family/Caregiver Education PLAN FOR NEXT VISIT: progress strengthening exercises as tolerated Patient demonstrates good understanding of plan of care and treatment. The above goals and plan of care were discussed and agreed upon by patient/family. SUBJECTIVE: Pt reports having a bowel flare up about a month ago after eating a lot of fiber. Pt reports having uncontrollable diarrhea for a few days after that. Pt reports having to wear a pad after having a bowel movement, doesn't feel like she fully empties bowels. Pt reports restarting previous PFPT HEP a week ago, has not done them consistantly since previous episode of PFPT before the last week. Pt reports not attempting squatty potty or toileting techniques discussed during last episode of care. 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 Recreation / Current Exercise: robert, walking Intake Information: Prescription present PAST MEDICAL HISTORY Diagnosis Date Abnormal mammogram, unspecified 2008 Anxiety disorder in conditions classified elsewhere Diverticulosis of colon (without mention of hemorrhage) Diverticulosis Diverticulosis of colon (without mention of hemorrhage) Fasciitis, unspecified PLANTAR Resolved with orthotics Insomnia, unspecified Internal hemorrhoids with other complication Internal hemorrhoids without mention of complication Microscopic colitis PAST SURGICAL HISTORY Procedure Laterality Date CATARACT EXTRACTION HX 2015 bilateral COLONOSCOPY FLX DX W/COLLJ SPEC WHEN PFRMD 06/29/2001 Colonoscopy WITH BIOPSY COLONOSCOPY FLX DX W/COLLJ SPEC WHEN PFRMD 07/17/2011 COLONOSCOPY FLX DX W/COLLJ SPEC WHEN PFRMD 05/11/2020 Dr. Charles Wang at [facility] [place] HYSTEROSCOPY, DIAGNOSTIC (SEPARATE LAPS ABD PRTMANDOMENTUM DX W/WO SPEC BR/WA SPX Laparoscopy/TUBAL STERILIZATION PAST SURGICAL HISTORY OF 10/09/2017 laser surgeries on left eye RT/LT HEART CATHETERS 02/2006 CC AND CA, R AND L heart SIGMOIDOSCOPY 05/15/2021 TOTAL ABDOMINAL HYSTERECT W/WO RMVL TUBE OVARY 1998 Hysterectomy, PAUL/bso Previous Treatment: Pelvic Floor Physical Therapy Falls Interview: No positive findings with falls interview Aquatic Screen: No Pain: Pain Pain Level: 0 Post Treatment Pain Post Treatment Pain Level: 0 PROMIS Scales Higher is Better 06/16/2023 2021 Phys Func - Score 48 (within normal limits) 51 (within normal limits) Phys Func - Percentile 42 % 54 % Self-Eff Symptom - Score 46 (Average) 43 (Average) Self-Eff Symptom - Percentile 34 % 24 % T-scores: mean of general population = 50. 5 points is clinically meaningfully difference Perc (more content not included)... [facility] 06-17-2023 History of Presen t illness Narrative Episode Visit Count: 1 Therapist That Will Accept/Oversee The Plan Of Care: Greg Duke Start of Care Date: 06/17/23 Onset Date: 05/17/23 Plan of Care Certification Date: 06/17/23 Next Certification Due Date: 08/16/23 Patient Identified by Name and Date of : Yes REH[facility]TS [facility]ERAPY PHYSICAL THERAPY EVALUATION PLAN OF CARE: Assessment: Leatha Zamudio presents with chief complaint of fecal incontinence that interferes with bowel function . She presents with impairments in decreased pelvic floor strength; impaired bowel function. PROMIS (Patient-Reported Outcomes Measurement Information System) scores were reviewed and physical function domain and self efficacy domain identified as within normal limits. Prognosis for therapy is Good due to: current objective clinical presentation . She will benefit from skilled therapy services to meet the goals established for this plan of care as noted below. Goals for Episode of Care: created on 06/17/23 through 08/16/23 Patient demonstrates independence and compliance with home exercise program. Patient to increase strength of pelvic floor to Power: at least 3/5 in order to improve bowel control. Patient to increase endurance of pelvic floor to at least 6 seconds to improve bowel control. Patient reports increased ability to fully empty bowels at least 75% of the time to normalize bowel function. Patient reports at least 75% improvement in fecal incontinence compared to IE. Patient Goals: improve bowel function Planned Interventions, Frequency, and Duration: Current Frequency: 1x every other week Duration: 4 weeks (reassess at 4 weeks and progress as indicated) Total Number of Visits Planned: 2 Planned Treatment Interventions: Therapeutic exercise (76233), Manual therapy (44801), Self-fpc management (83098), Patient/Family/Caregiver Education PLAN FOR NEXT VISIT: progress strengthening exercises as tolerated Patient demonstrates good understanding of plan of care and treatment. The above goals and plan of care were discussed and agreed upon by patient/family. SUBJECTIVE: Pt reports having a bowel flare up about a month ago after eating a lot of fiber. Pt reports having uncontrollable diarrhea for a few days after that. Pt reports having to wear a pad after having a bowel movement, doesn't feel like she fully empties bowels. Pt reports restarting previous PFPT HEP a week ago, has not done them consistantly since previous episode of PFPT before the last week. Pt reports not attempting squatty potty or toileting techniques discussed during last episode of care. 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 Recreation / Current Exercise: robert, walking Intake Information: Prescription present PAST MEDICAL HISTORY Diagnosis Date Abnormal mammogram, unspecified 2008 Anxiety disorder in conditions classified elsewhere Diverticulosis of colon (without mention of hemorrhage) Diverticulosis Diverticulosis of colon (without mention of hemorrhage) Fasciitis, unspecified PLANTAR Resolved with orthotics Insomnia, unspecified Internal hemorrhoids with other complication Internal hemorrhoids without mention of complication Microscopic colitis PAST SURGICAL HISTORY Procedure Laterality Date CATARACT EXTRACTION HX 2015 bilateral COLONOSCOPY FLX DX W/COLLJ SPEC WHEN PFRMD 06/29/2001 Colonoscopy WITH BIOPSY COLONOSCOPY FLX DX W/COLLJ SPEC WHEN PFRMD 07/17/2011 COLONOSCOPY FLX DX W/COLLJ SPEC WHEN PFRMD 05/11/2020 Dr. Charles Wang at [facility] [place] HYSTEROSCOPY, DIAGNOSTIC (SEPARATE LAPS ABD PRTM&OMENTUM DX W/WO SPEC BR/WA SPX Laparoscopy/TUBAL STERILIZATION PAST SURGICAL HISTORY OF 10/09/2017 laser surgeries on left eye RT/LT HEART CATHETERS 02/2006 CC & CA, R & L heart SIGMOIDOSCOPY 05/15/2021 TOTAL ABDOMINAL HYSTERECT W/WO RMVL TUBE OVARY 1998 Hysterectomy, PAUL/bso Previous Treatment: Pelvic Floor Physical Therapy Falls Interview: No positive findings with falls interview Aquatic Screen: No Pain: Pain Pain Level: 0 Post Treatment Pain Post Treatment Pain Level: 0 PROMIS Scales Higher is Better 06/16/2023 2021 Phys Func - Score 48 (within normal limits) 51 (within normal limits) Phys Func - Percentile 42 % 54 % Self-Eff Symptom - Score 46 (Average) 43 (Average) Self-Eff Symptom - Percentile 34 % 24 % T-scores: mean of general population = 50. 5 points is clinically meaningfully difference Percentiles provide an indication of how the patient's score ranks in relation to the general population. Higher percentile rankings indicate better function/quality of life. 50th percentile is the average of the general population and indicates half of respondents had a worse score. OBJECTIVE MEASURES WITH LEVEL OF FUNCTION: Pelvic Floor Urinary/Bowel History : Urinary History, Bowel History Difficulty starting stream: No Incomplete emptying: No Stress Incontinence: No Urgency: No Daytime Frequency (hours): forever if I need to Fluid Intake: Water, Coffee Water : I don't really measure, a lot Coffee: 1 Difficulty evacuating / Excessive Straining: No Incomplete emptying: Sometimes Bowel Movement Frequency: 1x/every other day Bowel Movement Consistency (Ramsey) : 7: Watery, no solid pieces, 6: Fluffy pieces with ragged edges, a mushy stool, 5: Soft blobs with clear cut edges, 4: Like a sausage or snake, smooth and soft Fecal incontinence: Yes Smearing/Stainin or more times per week Pelvic Floor Muscle Assessment Consent for pelvic assessment/testing and treatment: Patient was educated regarding pelvic floor physical therapy assessment/treatment which may include pelvic floor and girdle muscle assessment externally or internally (vaginal or rectal approach)., Patient verbalized consent for the above treatment approaches today. Patient understands they have control of the treatment and an opportunity to stop treatment at any time. Pelvic Floor Muscle Assessment: PERFECT, Muscle Dynamics Power: 2 Endurance: 3 Fast Reps: 5 Contracton Pressure: Weak squeeze, felt as flick at various points along finger surface, not all the way around Duration of Contraction: >1 to <3 seconds Recruitment of pelvic floor muscles: Coordinated Range of Motion: Normal Ability to Lengthen pelvic floor: Yes Pelvic Floor Manual Assessment Pelvic Floor Tenderness/Hyperactivity: Tested Vaginally in Tested Vaginally in : Supine/hooklying Superficial transverse perineal: Left (0/1) LE AROM R LE AROM: WFL L LE AROM: WFL LE Flexibility Flexibility: Hamstring Flexibility, Hip Adductor, Hip Internal Rotation Flexibility, Hip External Rotation Flexibility R Hamstring Flexibility: WNL L Hamstring Flexibility: WNL R Adductor Flexibility: WNL L Adductor Flexibility: WNL R Hip Internal Rotation Flexibility: WNL L Hip Internal Rotation Flexibility: WNL R Hip External Rotation Flexibility: WNL L Hip External Rotation Flexibility: WNL LE Strength Trunk Strength: Lower Abdominals: 4/5 R LE Strength: 5/5 L LE Strength: 5/5 Education: Education Learning Preferences: Demonstration, Explanation, Performance, Printed Materials Barriers: None Learning/educational needs: Home exercise program, Plan of Care Education Provided: Yes, see treatment interventions for education provided Education Provided To: Patient Education Mode/Type: Demonstration, Explanation/Discussion, Literature/Printed Materials, Performance Response to Education/Teach Back: States/Identifies, Return Demonstration TREATMENT: PT Treatment Interventions: Therapeutic Exercise, Self-Assisted Management Evaluation Therapeutic Exercise: 1: *quick kegals, 5x5 2: *kegal holds, 3sec hold with 3sec rest, 3x5 3: *isometric hip adduction, 2x10 4: *hooklying hip abduction, L4 TB, 2x10 Skilled Intervention: Patient was educated in proper exercise technique and purpose for exercises. Reviewed and educated patient on additions/changes for home exercise program as above (*). Skilled judgment was provided in selection of appropriate interventions. Provided written instruction for home exercise program to facilitate proper performance and compliance. Self-Assisted Management: 1: Reviewed importance of good compliance with HEP for progress with PT 2: Reviewed impact of weak mm on bowel function 3: Reviewed toileting techniques to fully empty bowels without straining 4: Reviewed importance of good stool consistency to combat FI, impact of diet on stool consistency, benefits of meeting with supervisor pumping for more detailed diet plan Skilled Intervention: Skilled judgment in the selection of proper modification for activity of daily living/home management based on clinical presentation, deficits, and needs. Provided written instruction for activities of daily living techniques to facilitate proper performance and compliance. Billing * Evaluation Low Complexity: 1 Unit Therapeutic Exercise Treatment Minutes: 11 Self-Care/Home Management Treatment Minutes: 14 Skilled Treatment Time Minutes (timed and untimed codes): 42 Total Session Time (minutes): 42 Session Start Time : 844 Session Stop Time : 926 Greg Duke, PT documented in this encounter [facility] 06-06-2023 Miscellaneous Notes Formattin g of this note might be different from the original. Patient notified. Transferred to PT PSS. Shanelle Davies RN Done Luis Sales MD See note below. Spoke to patient and she states she did pelvic floor therapy in the past for fecal incontinence and it did help then. She has been taking budesonide that was prescribed from her gastro provider for this, but feels she needs more help again. Annual scheduled with [facility] 06/26/23. Asking if [facility] can file that referral for her again? This was previously ordered 07/09/21. Aware provider back in office on 06/06/23. Shanelle Davies RN Patient is requesting a referral for pelvic floor therapy with physical therapist, Greg Ramirez. Please notify the patient when referral and ready to be scheduled. documented in this encounter [facility] 06-24-2022 History of Presen t illness Narrative Non Emergency Services Ambulance Driver offered: Patient declines. Leatha is a 76 year old who presents for an annual gynecologic exam without complaints. Postmenopausal: Yes - s/p PAUL 1998 HRT use: None currently but used in the past History of abnormal pap: No Last mammogram: gets at [facility] with pcp, normal 2020 per patient OB History T2 L2 SAB0 IAB0 Ectopic0 Multiple0 Live Births0 Comment: 2 vaginal deliveries [employer] History LMP: Hysterectomy Age at Menarche: Age at First : Age at Menopause: [employer] History Comments: Sexual Activity: Yes; Male; HYSTERECTOMY BSO Contraception: No contraception data on record PAST MEDICAL HISTORY Diagnosis Date Abnormal mammogram, unspecified 2008 Anxiety disorder in conditions classified elsewhere Diverticulosis of colon (without mention of hemorrhage) Diverticulosis Diverticulosis of colon (without mention of hemorrhage) Fasciitis, unspecified PLANTAR Resolved with orthotics Insomnia, unspecified Internal hemorrhoids with other complication Internal hemorrhoids without mention of complication Microscopic colitis PAST SURGICAL HISTORY Procedure Laterality Date CATARACT EXTRACTION HX 2015 bilateral COLONOSCOP W/ OR W/O [facility] SPEC 06/29/2001 Colonoscopy WITH BIOPSY COLONOSCOP W/ OR W/O [facility] SPEC 07/17/2011 COLONOSCOP W/ OR W/O [facility] SPEC 05/11/2020 Dr. Charles Wang at [facility] [place] HYSTEROSCOPY, DIAGNOSTIC (SEPARATE L'SCOPE DX W/WO BRUSHINGS/WASHINGS Laparoscopy/TUBAL STERILIZATION PAST SURGICAL HISTORY OF 10/09/2017 laser surgeries on left eye RT/LT HEART CATHETERS 02/2006 CC & CA, R & L heart SIGMOIDOSCOPY 05/15/2021 TOTAL ABDOM HYSTERECTOMY 1998 Hysterectomy, PAUL/bso FAMILY HISTORY Adopted: Yes Problem Relation Age of Onset Stroke Mother Heart Mother 90 Cancer Father STOMACH AT AGE 93 SOCIAL HISTORY Social History Tobacco Use Smoking status: Never Smokeless tobacco: Never Vaping Use Vaping Use: Never used Substance Use Topics Alcohol use: Yes Comment: occasional 4 per month Drug use: No REVIEW OF SYSTEMS Abdomen: fecal incontinence much improved with pelvic floor PT; now just seeing (GI) Bladder: No dysuria, gross hematuria, urinary frequency, urinary urgency, or incontinence Breast: No breast lumps, nipple d/c, overlying skin changes, redness or skin retraction Allergies and current medication updated:Yes EXAM: There were no vitals taken for this visit. GENERAL: pleasant, female in no apparent distress BREAST: soft, non-tender, symmetric, no dominant mass, normal nipple-areolar complex, no lymphadenopathy, and no nipple discharge CHEST: Normal inspiratory effort ABDOMEN: soft, non-tender, and no masses PELVIC: external genitalia normal, normal Bartholin's glands, urethra, [place]'s glands, no vulvar lesions, normal appearing perineal body and perianal region; atrophic vaginitis BIMANUAL: uterus surgically absent no adnexal masses, and non-tender RECTOVAGINAL: rectovaginal exam negative for any masses or nodularity. NEURO: alert and oriented x3,exam grossly non-focal EXTREMITIES: normal ASSESSMENT/PLAN: 1) Health maintenance: Pap/HPV screening no longer needed Mammogram - ordered by pcp (getting this week at [facility]) Nutrition, exercise and routine health maintenance exams reviewed. Colon cancer screening: up to date with screening - follows with [facility]: followed by PCP 2) Follow up one year or sooner as needed Luis Sales MD documented in this encounter [facility] documented as of this encounter (statuses as of 06/24/2022) [facility] History of Past illness Narrative* Problem Noted Date Diagnosed Date Resolved Date Muscle weakness 07/09/2021 08/06/2021 Scabies 08/29/2008 05/16/2011 RASH EXANTHEM//NONSPECIF SKIN ERUPT NEC 08/29/2008 05/16/2011 Inflamed seborrheic keratosis 11/28/2006 05/16/2011 documented as of this encounter (statuses as of 06/07/2023) [facility] History of Past illness Narrative* Problem Noted Date Diagnosed Date Resolved Date Muscle weakness 07/09/2021 08/06/2021 Scabies 08/29/2008 05/16/2011 RASH EXANTHEM//NONSPECIF SKIN ERUPT NEC 08/29/2008 05/16/2011 Inflamed seborrheic keratosis 11/28/2006 05/16/2011 documented as of this encounter (statuses as of 06/17/2023) [facility] History of Past illness Narrative* Problem Noted Date Diagnosed Date Resolved Date Muscle weakness 07/09/2021 08/06/2021 Scabies 08/29/2008 05/16/2011 RASH EXANTHEM//NONSPECIF SKIN ERUPT NEC 08/29/2008 05/16/2011 Inflamed seborrheic keratosis 11/28/2006 05/16/2011 documented as of this encounter (statuses as of 07/01/2023) [facility] History of Past illness Narrative* Problem Noted Date Diagnosed Date Resolved Date Muscle weakness 07/09/2021 08/06/2021 Scabies 08/29/2008 05/16/2011 RASH EXANTHEM//NONSPECIF SKIN ERUPT NEC 08/29/2008 05/16/2011 Inflamed seborrheic keratosis 11/28/2006 05/16/2011 documented as of this encounter (statuses as of 07/15/2023) [facility] Diagnosis Encounter for gynecological examination without abnormal finding- Primary Routine gynecological examination [facility] Diagnosis Incontinence of feces, unspecified fecal incontinence type- Primary [facility] Diagnosis Incontinence of feces, unspecified fecal incontinence type- Primary Muscle weakness Muscle weakness (generalized) [facility] Diagnosis Incontinence of feces, unspecified fecal incontinence type- Primary Muscle weakness Muscle weakness (generalized) [facility] Diagnosis Incontinence of feces, unspecified fecal incontinence type- Primary Muscle weakness Muscle weakness (generalized) documented in this encounter [facility] Reason for Referral Specialty Diagnoses / Procedures Referred By Pat richter Referred To Contact [facility] Diagnoses Incontinence of feces, unspecified fecal incontinence type Procedures CONSULT TO PHYSICAL THERAPY PHYSICAL THERAPY EVALUATION HIGH COMPLEX 45 MINS Luis Sales MD [address] [place] [address] [facility] [address] [address] Referral ID Status Reason Start Date Expiration Date Visits Requested Visits Authorized [id number] Pending Review Auto-Generat ed Referral 06/06/2023 06/05/2024 1 1 Summary Purpose Family History No Family History Records Found Advance Directives No Advanced Directives Records Found Additional Source Comments Source Comments (unrecognize d section and content) In the event this informatio n is protected by the Federal Confidentiality of Alcohol and Drug Abuse Patient Records regulations: The Federal rules restrict any use of the information to criminally investigate or prosecute any alcohol or drug abuse patient.[facility] event this information is protected by the Federal Confidentiality of Alcohol and Drug Abuse Patient Records regulations: The Federal rules restrict any use of the information to criminally investigate or prosecute any alcohol or drug abuse patient.[facility] the event this information is protected by the Federal Confidentiality of Alcohol and Drug Abuse Patient Records regulations: The Federal rules restrict any use of the information to criminally investigate or prosecute any alcohol or drug abuse patient.[facility] the event this information is protected by the Federal Confidentiality of Alcohol and Drug Abuse Patient Records regulations: The Federal rules restrict any use of the information to criminally investigate or prosecute any alcohol or drug abuse patient.[facility] the event this information is protected by the Federal Confidentiality of Alcohol and Drug Abuse Patient Records regulations: The Federal rules restrict any use of the information to criminally investigate or prosecute any alcohol or drug abuse patient.[facility] Reason for Visit (unrecogniz ed section and content) Specialty Diagnoses / Procedures Referred By Pat richter Referred To Contact [facility] Diagnoses Incontinence of feces, unspecified fecal incontinence type Procedures CONSULT TO PHYSICAL THERAPY PHYSICAL THERAPY EVALUATION HIGH COMPLEX 45 MINS THERAPEUTIC EXERCISES RE, EA 15 MIN. 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 Engineer [employer] [address] [place] [address] Referral ID Status Reason Start Date Expiration Date V isits Requested Visits Authorized [id number] Closed OON/Self Pay Override 06/06/2022 10/12/2022 1 1 Reason Comments Referral Request Physical Therapy Reason Comments PT Eval Care Teams (unrecognized sec tion and content) Appointment Specialist Relationship Specialty Start Date End Date Em Barrett PCP - General 04/05/05 Appointment Specialist Relationship Specialty Start Date End Date Em Barrett PCP - General 04/05/05 Appointment Specialist Relationship Specialty Start Date End Date Em Barrett PCP - General 04/05/05 Appointment Specialist Relationship Specialty Start Date End Date Em Barrett PCP - [facility] 04/05/05 INFORMATION SOURCE (unrecogn ized section and content) FOR RECORDS PERTAINING TO PATIENTS WHO ARE OR HAVE BEEN ENROLLED IN A CHEMICAL DEPENDENCY/SUBSTANCEABUSE PROGRAM, SOME INFORMATION MAY BE OMITTED. This clinical summary was aggregated from multiple sources. Caution should be exercised in using it in the provision of clinical care. This summary normalizes information from multiple sources, and as a consequence, information in this document may materially change the coding, format and clinical context of patient data. In addition, data may be omitted in some cases. CLINICAL DECISIONS SHOULD BE BASED ON THE PRIMARY CLINICAL RECORDS. [facility]. provides no warranty or guarantee of the accuracy or completeness of information in this document.
[2023-12-06 00:07] LABS: Calprotectin, Stool 377 ug/g (0-120)
[2023-12-07 01:06] LABS: Pancreatic Elastase, Fecal < 50 (>200)
== END | disposition home or self-care (01) ==
LOC: LAB 06:37
PROVIDERS: PCP Family Medicine; Referring Provider Internal Medicine Gastroenterology; Visit Provider Internal Medicine Gastroenterology
DX: K52.839 Microscopic colitis, unspecified (principal)
CPT/HCPCS: 82653; 83630; 83993; 87177; 87209; 87329; 87493; 87506

== ENCOUNTER → 2023-12-22 | Outpatient (CLI) | payer OTHER, MEDICARE, SELFPAY ==
--- NOTE | 2023-12-22 07:58 | MRI_ITS ---
EXAM: MR PELVIS WITHOUT AND WITH INTRAVENOUS CONTRAST CLINICAL INDICATION: severe fecal incontence TECHNIQUE: Multiplanar and multisequence MR images of the pelvis without and with intravenous contrast. Magnetic field strength 1.5 T. CONTRAST: 13 cc of Clariscan IV. COMPARISON: No relevant prior studies available. FINDINGS: APPENDIX: No evidence of acute appendicitis. INTRAPERITONEAL SPACE: Unremarkable. No ascites or other fluid collection. BLADDER: Unremarkable. OVARIES: Unremarkable as visualized. No mass or complex cyst. UTERUS/CERVIX: Hysterectomy. BONES/JOINTS: Unremarkable. No suspicious lytic or blastic abnormality. SOFT TISSUES: Unremarkable. No pelvic wall hernia. LYMPH NODES: Unremarkable. No enlarged lymph nodes. MRI/Pelvis W/WO Contrast IMPRESSION: 1. Hysterectomy. 2. No significant pelvic abnormality identified. Electronically Signed: Meek Guaman MD at 22:41 EDT ,
--- OUTSIDE RECORDS SUMMARY | 2023-12-22 08:16 | XMS RPT_ITS | CCD ---
Author Name Unknown Address [address] [place] [address] Organization [facility] Care Team Providers Care Casting Director Name Role Phone Em Barrett Primary Care Provider GREG LEAVITT Attending Unavailable LUIS SALES Referring [...] 160.5 cm Luis Sales MD Work Phone: [facility] 06-24-2022 09:26-0400 Body weight 63.78 kg Luis Sales MD Work Phone: [facility] 06-24-2022 09:26-0400 Diastolic blood pressure 78 mm[Hg] Luis Sales MD Work Phone: [facility] 06-24-2022 09:26-0400 Systolic blood pressure 130 mm[Hg] Luis Sales MD Work Phone: [facility] Encounters Encounter Date Encounter Type Care Provider Facility Start: 07-15-2023 End: 07-15-2023 ambulatory Greg Duke PT Work Phone: [facility] Physical Therapy Procedures Date Procedure Procedure Detail Performing Clinician Start: 06-22-2020 Mammography Luis denise MD Work Phone: Start: 05-11-2020 Colonoscopy Luis denise MD Work Phone: Start: 01-15-2012 Lipid 1996 panel - S ap or Plasma Greg Duke PT Work Phone: Plan of Treatment Date Care Activity Detail Author Start: 05-11-[address] [facility] Start: 05-11-2030 COLORECTAL CANCER SCREENING COLORECTAL CANCER SCREENING [facility] Start: 06-13-2023 Influenza vaccination INFLUENZA (#1) [facility] Start: 11-16-2022 Covid-19 Vaccine (6 - Moderna series) Covid-19 Vaccine (6 - Moderna series) [facility] Start: 10-13-2022 ADVANCE DIRECTIVE DISCUSSION ADVANCE DIRECTIVE DISCUSSION [facility] Start: 10-13-2022 DEPRESSION ASSESSMENT DEPRESSION ASS ESSMENT [facility] Start: 06-13-2022 Influenza vaccination INFLUENZA (#1) [facility] Start: 10-13-2021 ADVANCE DIRECTIVE DISCUSSION ADVANCE DIRECTIVE DISCUSSION [facility] Start: 06-22-[address] [facility] Start: 01-14-2017 Lipid 1996 panel - S ap or Plasma Lipid Screening [facility] Start: 01-14-2017 LIPID SCREEN LIPID SCREEN [facility] Start: 2012 Pneumococcal Vaccine : 65+ (1 - PCV) Pneumococcal Vaccine: 65+ (1 - PCV) [facility] Start: 2012 PNEUMOCOCCAL: 65+ (1 - PCV) PNEUMOCOCCAL: 65+ (1 - PCV) [facility] Start: 1997 SHINGRIX VACCINE (1 of 2) SHINGRIX V ACCINE (1 of 2) [facility] Start: 1992 COLOGUARD (FIT-DNA) COLOGUARD (FIT-D NA) [facility] Start: [address] COLONOGRAPHY [facility] Start: 1992 DIABETES SCREEN DIABETES SCREEN [facility] Start: 1992 Diabetes Screening Diabetes Screenin g [facility] Start: 1992 FECAL OCCULT BLOOD FECAL OCCULT BLOO D [facility] Start: 1992 SIGMOIDOSCOPY SIGMOIDOSCOPY [facility] Start: [address] [facility] Start: 1965 HEPATITIS C SCREENING HEPATITIS C SC REENING [facility] Start: 1959 Adult depression scr eening assessment DEPRESSION SCREENING [facility] Start: 01-06-1946 COVID-19 VACCINE (#1) COVID-19 VACCI NE (#1) [facility] Payers Date Payer Category Payer Medicare [id number] 2021 Private Health Insurance HUMANA HUMANA MEDICARE SUPPLEMENT [id number] 2021-Present [phone] [address] [address] [place] [address] Indemnity [id number] 2020 Unknown [facility] CE PLAN [place] PPO [place] [employer] [id number] 2020-Present [phone] [address] [place] [address] PPO [id number] 2020 Unknown [id number] 2012 Medicare [id number] 2012 Medicare [id number] Social History Date Type Detail Facility Start: 06-24-2022 Tobacco smoking stat RUSTIS Never smoked tobacco [facility] Start: 06-24-2022 Tobacco use and exposure Smoke less tobacco non-user [facility] Start: 06-24-2022 End: 06-26-2023 Alcohol intake Current drinker of alcohol (finding) [facility] Start: 01-22-2012 History SDOH Alcohol Comment occasional [address] [facility] Start: 1945 Sex Assigned At Not on file [facility] Start: 06-24-2022 End: 06-17-2023 History of [address] function [facility] Start: 06-24-2022 End: 06-17-[address] [facility] National Score (1-10 0), lower number is lower risk 66 [facility] Start: 07-03-2021 Gender identity Identifies as female gender (finding) [facility] Start: 07-03-2021 Sexual orientation Heterosexual (fin ding) [facility] Clinical Notes 07-09-2021 to 07-15-2023 Greg Leavitt, PT - 07/15/2023 6:53 AM Greg Turner, PT - 07/01/2023 11:06 AM Greg Turner, PT - 06/17/2023 8:45 AM Darci Sales MD - 06/24/2022 9:16 AM EDT Note Date & Type Note Facility 07-15-2023 Note HNO ID: [id number] Author: Greg Leavitt, PT Service: ? Author [...] 07/15/2023 and treatment included: Therapeutic exercise and Self-long term management. Goals for Episode of Care: created [...] assessment deferred due to pt request.) TREATMENT: Self-Mcfp Management: 1: Reassessment 2: Reviewed benefits of [...] Stop Time : 717 Greg Duke, PT [facility] 07-15-2023 History of Presen t illness Narrative [...] 07/15/2023 and treatment included: Therapeutic exercise and Self-long term management. Goals for Episode of Care: created [...] assessment deferred due to pt request.) TREATMENT: Self-Mcfp Management: 1: Reassessment 2: Reviewed benefits of [...] Greg Duke PT documented in this encounter [facility] 07-01-2023 Note HNO ID: [id number] Author: Greg Leavitt PT Service: ? Author [...] program to facilitate proper performance and compliance. Self-Mcfp Management: 1: Reviewed toileting techniques to fully empty bowels without straining 2: *self-colon massage 3: Reviewed benefits of fiber intake to combat FI, benefits of meeting with perfect bind machine operator for more specific diet plan Skilled Intervention: [...] Stop Time : 1133 Greg Duke, PT [facility] 07-01-2023 History of Presen t illness Narrative Episode Visit Count: 2 Therapist That Will Accept/Oversee The Plan Of Care: Gerg Duke Start of Care Date: 06/17/23 Onset [...] program to facilitate proper performance and compliance. Self-Mcfp Management: 1: Reviewed toileting techniques to fully empty bowels without straining 2: *self-colon massage 3: Reviewed benefits of fiber intake to combat FI, benefits of meeting with perfect bind machine operator for more specific diet plan Skilled Intervention: [...] Greg Duke PT documented in this encounter [facility] 09-14-2023 Note HNO ID: [id number] Author: Lusi Sales MD Service: ? Author Type: Physician Type: Progress Notes Filed: 06/26/2023 4:16 PM Note Text: Wheat Inspector offered: Patient declines. Leatha is a 77 year old who presents for an annual gynecologic exam. Postmenopausal: Yes - s/p PAUL in 1998 HRT use: No. History of abnormal pap: No Last mammogram: scheduled at [facility] this month OB History T2 L2 SAB0 IAB0 Ectopic0 Multiple0 Live Births0 Comment: 2 vaginal deliveries [employer] History LMP: Hysterectomy Age at Menarche: Age at First : Age at Menopause: [employer] History Comments: Sexual Activity: Not Asked; Male; [...] [facility] at [facility] [place] HYSTEROSCOPY, DIAGNOSTIC (SEPARATE LAPS ABD PRTMANDOMENTUM DX [...] by pcp AND getting this month at [facility] Colon cancer screening: up to date with screening AND follows with BMD: followed by PCP 2) Follow up one year or sooner as needed Luis Sales MD [facility] 06-17-2023 Note HNO ID: [id number] Author: Greg Leavitt, PT Service: ? 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 Self-Mcfp Management: 1: Reviewed importance of good compliance with HEP for progress with PT 2: Reviewed impact of weak mm on bowel function 3: Reviewed toileting techniques to fully empty bowels without straining 4: Reviewed importance of good stool consistency to combat FI, impact of diet on stool consistency, benefits of meeting with perfect bind machine operator for more detailed diet plan Skilled Intervention: [...] Greg Duke, PT documented in this encounter [facility] 06-06-2023 Miscellaneous Notes Formattin g of [...] to be scheduled. documented in this encounter [facility] 06-24-2022 History of Presen t illness Narrative Wheat Inspector offered: Patient declines. Leatha is a 76 year old who presents for an annual gynecologic exam without complaints. Postmenopausal: Yes - s/p PAUL 1998 HRT use: None currently but used in the past History of abnormal pap: No Last mammogram: gets at [facility] with pcp, normal 2020 per patient OB History T2 L2 SAB0 IAB0 Ectopic0 Multiple0 Live Births0 Comment: 2 vaginal deliveries [employer] History LMP: Hysterectomy Age at Menarche: Age at First : Age at Menopause: [employer] History Comments: Sexual Activity: Yes; Male; HYSTERECTOMY [...] HX 2015 bilateral COLONOSCOP W/ OR W/O [facility] SPEC 06/29/2001 Colonoscopy WITH BIOPSY COLONOSCOP W/ OR W/O [facility] SPEC 07/17/2011 COLONOSCOP W/ OR W/O [facility] SPEC 05/11/2020 Dr. Charles Wang at the [facility] [place] HYSTEROSCOPY, DIAGNOSTIC (SEPARATE L'SCOPE DX W/WO BRUSHINGS/WASHINGS [...] external genitalia normal, normal Bartholin's glands, urethra, Carbonado's glands, no vulvar lesions, normal appearing perineal body and perianal region; atrophic vaginitis BIMANUAL: uterus surgically absent no adnexal masses, and non-tender RECTOVAGINAL: rectovaginal exam negative for any masses or nodularity. NEURO: alert and oriented x3,exam grossly non-focal EXTREMITIES: normal ASSESSMENT/PLAN: 1) Health maintenance: Pap/HPV screening no longer needed Mammogram - ordered by pcp (getting this week at [facility]) Nutrition, exercise and routine health maintenance exams reviewed. Colon cancer screening: up to date with screening - follows with [facility]: followed by PCP 2) Follow up one year or sooner as needed Luis Sales MD documented in this encounter [facility] documented as of this encounter (statuses as of 06/24/2022) [facility] History of Past illness Narrative* Problem Noted Date Diagnosed Date Resolved Date Muscle weakness 07/09/2021 08/06/2021 Scabies 08/29/2008 05/16/2011 RASH EXANTHEM//NONSPECIF SKIN ERUPT NEC 08/29/2008 05/16/2011 Inflamed seborrheic keratosis 11/28/2006 05/16/2011 documented as of this encounter (statuses as of 06/07/2023) [facility] History of Past illness Narrative* Problem Noted Date Diagnosed Date Resolved Date Muscle weakness 07/09/2021 08/06/2021 Scabies 08/29/2008 05/16/2011 RASH EXANTHEM//NONSPECIF SKIN ERUPT NEC 08/29/2008 05/16/2011 Inflamed seborrheic keratosis 11/28/2006 05/16/2011 documented as of this encounter (statuses as of 06/17/2023) [facility] History of Past illness Narrative* Problem Noted Date Diagnosed Date Resolved Date Muscle weakness 07/09/2021 08/06/2021 Scabies 08/29/2008 05/16/2011 RASH EXANTHEM//NONSPECIF SKIN ERUPT NEC 08/29/2008 05/16/2011 Inflamed seborrheic keratosis 11/28/2006 05/16/2011 documented as of this encounter (statuses as of 07/01/2023) [facility] History of Past illness Narrative* Problem Noted Date Diagnosed Date Resolved Date Muscle weakness 07/09/2021 08/06/2021 Scabies 08/29/2008 05/16/2011 RASH EXANTHEM//NONSPECIF SKIN ERUPT NEC 08/29/2008 05/16/2011 Inflamed seborrheic keratosis 11/28/2006 05/16/2011 documented as of this encounter (statuses as of 07/15/2023) [facility] Diagnosis Encounter for gynecological examination without abnormal finding- Primary Routine gynecological examination [facility] Diagnosis Incontinence of feces, unspecified fecal incontinence type- Primary [facility] Diagnosis Incontinence of feces, unspecified fecal incontinence type- Primary Muscle weakness Muscle weakness (generalized) [facility] Diagnosis Incontinence of feces, unspecified fecal incontinence type- Primary Muscle weakness Muscle weakness (generalized) [facility] Diagnosis Incontinence of feces, unspecified fecal incontinence type- Primary Muscle weakness Muscle weakness (generalized) documented in this encounter [facility] Reason for Referral Specialty Diagnoses / Procedures Referred By Pat richter Referred To Contact [facility] Diagnoses Incontinence of feces, unspecified fecal incontinence type Procedures CONSULT TO PHYSICAL THERAPY PHYSICAL THERAPY EVALUATION HIGH COMPLEX 45 MINS Luis Sales MD [address] [place] [address] [facility] [address] [address] Referral ID Status Reason Start Date Expiration Date Visits Requested Visits Authorized [id number] Pending Review Auto-Generat ed Referral 06/06/2023 06/05/2024 [...] or prosecute any alcohol or drug abuse patient.[facility] the event this information is protected by the Federal Confidentiality of Alcohol and Drug Abuse Patient Records regulations: The Federal rules restrict any use of the information to criminally investigate or prosecute any alcohol or drug abuse patient.[facility] the event this information is protected by the Federal Confidentiality of Alcohol and Drug Abuse Patient Records regulations: The Federal rules restrict any use of the information to criminally investigate or prosecute any alcohol or drug abuse patient.[facility] the event this information is protected by the Federal Confidentiality of Alcohol and Drug Abuse Patient Records regulations: The Federal rules restrict any use of the information to criminally investigate or prosecute any alcohol or drug abuse patient.[facility] the event this information is protected by the Federal Confidentiality of Alcohol and Drug Abuse Patient Records regulations: The Federal rules restrict any use of the information to criminally investigate or prosecute any alcohol or drug abuse patient.[facility] Reason for Visit (unrecogniz ed section and content) Specialty Diagnoses / Procedures Referred By Pat richter Referred To Contact [facility] Diagnoses Incontinence of feces, unspecified fecal incontinence type Procedures CONSULT TO PHYSICAL THERAPY PHYSICAL THERAPY EVALUATION HIGH COMPLEX 45 MINS THERAPEUTIC EXERCISES RE, EA 15 MIN. Luis Sales MD [address] [place] [address] [facility] [place] [address] [place] [address] Referral ID Status Reason Start Date Expiration Date Visits Requested Visits Authorized [id number] Authorized Auto-Generat ed Referral 10/13/2022 10/12/2023 40 40 Reason Comments Physical Therapy Reason Comments Well Woman Specialty Diagnoses / Procedures Referred By Pat richter Referred To Contact NOTCH MACHINE OPERATOR Diagnoses annual Procedures WELLNESS EXAMS EST 65+ YRS annual Luis Sales MD [address] [place] [address] [employer] [address] [place] [address] Referral ID Status Reason Start Date Expiration Date V isits Requested Visits Authorized [id number] Closed OON/Self Pay Override 06/06/2022 10/12/2022 1 1 Reason Comments Referral Request Physical Therapy Reason Comments PT Eval Care Teams (unrecognized sec tion and content) Casting Director Relationship Specialty Start Date End Date Em Barrett PCP - General 04/05/05 Casting Director Relationship Specialty Start Date End Date Em Barrett PCP - General 04/05/05 Casting Director Relationship Specialty Start Date End Date Em Barrett PCP - General 04/05/05 Casting Director Relationship Specialty Start Date End Date Em Barrett PCP - [facility] 04/05/05 INFORMATION SOURCE (unrecogn ized section and [...] BE BASED ON THE PRIMARY CLINICAL RECORDS. [email or web address] provides no warranty or guarantee of the accuracy or completeness of information in this document.
[2023-12-22 08:37] LABS: CREATININE FINGERSTICK < 1.0 mg/dL (0.55-1.02); EGFR FINGERSTICK > 60.0000 mL/min (>60)
== END | disposition home or self-care (01) ==
LOC: MRI 07:54
PROVIDERS: PCP Family Medicine; Referring Provider Internal Medicine Gastroenterology; Visit Provider Internal Medicine Gastroenterology
DX: R15.9 Full incontinence of feces (principal)
CPT/HCPCS: 72197; A9575

== ENCOUNTER 2024-06-03 07:07 | Day surgery (SDC) | payer OTHER, MEDICARE, SELFPAY ==
--- NOTE | 2024-06-03 07:24 | PCM.PRE.AN2 ---
ASA Classification* ASA Classification ASA Classification: 2 Assessment & Plan Anesthesia* Anesthesia Assessment Anesthesia Assessment: Discussed sedation and/or anesthesia options, risks, benefits, and alternatives with patient/parents/legal guardian/POA. Questions invited. The patient/parents/legal guardian/POA seems to understand and agrees to proceed with anesthesia plan. Reviewed the physical assessment, medical history, allergy history and patient home medications list prior to surgery/procedure/anesthetic and documented any changes. Performed airway and anesthesia risk assessments. Anesthesia Type Anesthesia Type: MAC (see written pre anesthesia record for full assessment) Anesthesia Focused Assessment* Airway Assessment Mouth opens: >3 cm Mallampati Score: II Focused Labs Anesthesia Preop lab: CBC WBC 5.4 K/mm3 (4.4-11.0) 09/16/23 08:35 RBC 4.35 M/mm3 (4.2-5.4) 09/16/23 08:35 Hgb 13.4 g/dL (12.0-15.0) 09/16/23 08:35 Hct 41.7 % (37-47) 09/16/23 08:35 Plt Count 254 K/mm3 (150-450) 09/16/23 08:35 CHEMISTRY Potassium 3.7 mmol/L (3.5-5.1) 09/16/23 08:35 Sodium 140 mmol/L (136-145) 09/16/23 08:35 BUN 11 mg/dL (7-18) 09/16/23 08:35 Creatinine 0.80 mg/dL (0.55-1.02) 09/16/23 08:35 Glucose 83 mg/dL (74-106) 09/16/23 08:35 TSH 3.26 uIU/mL (0.358-3.74) 09/16/23 08:35 COAG Pre-Assessment Diagnosis/Proposed Procedure Planned Operative Procedure(s): AXONICS STAGE 1 Anesthesia History 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 When Was Last Pacemaker Check QUESTION #4 FULL TEXT: You/Your Family Experience fever (hyperthermia) with Anesthesia Last Oral Intake Last Oral intake: Last Oral Intake NPO since Meds taken in AM with sips of water? Meds patient instructed to take am of surgery PONV PONV - bookkeeping service sales agent: PONV - bookkeeping service sales agent Female Yes 05/21/24 08:46 HX of Motion Sickness Yes 05/21/24 08:46 HX of N/V After Surgery No 05/21/24 08:46 Non-Smoker Yes 05/21/24 08:46 Duration of Surgery greater No 05/21/24 08:46 than 60 minutes Number of Risk Factors 3 05/21/24 08:46 PONV Score Moderate Risk 05/21/24 08:46 Respiratory Assessment Respiratory Assessment - bookkeeping service sales agent: Respiratory Tract Infection Hx - bookkeeping service sales agent Hx Respiratory Tract Infection No 05/21/24 08:46 STOP Sleep Apnea STOP Sleep Apnea - bookkeeping service sales agent: STOP Sleep Apnea - bookkeeping service sales agent Hx Hypertension No 05/21/24 08:46 Hx Sleep Apnea No 05/21/24 08:46 CPAP BIPAP Do you snore loudly (louder No 05/21/24 08:46 than talking or can be heard Do you often feel tired/ No 05/21/24 08:46 fatigued/ sleepy during daytime? Has anyone observed you stop No 05/21/24 08:46 breathing during sleep? STOP Results Negative 05/21/24 08:46 QUESTION #5 FULL TEXT : Do you snore loudly (louder than talking or can be heard through closed doors)? 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 Specify any problems Hx of Preganancy in last 3 No 05/21/24 08:46 Months Nurse Filling Out Transfusion DSCHRIBER 05/21/24 08:46 & Questions: Date: 05/21/24 05/21/24 08:46 Time: 08:48 05/21/24 08:46 Patient unable to answer at this time (ie. confused, unrespo /Reproduction History /Reproductive History - bookkeeping service sales agent: /Reproductive Hx- bookkeeping service sales agent Hx Now No 05/21/24 08:46 Gestational Age (in weeks): EDC: Hx Hx Para Hx Section SAB No 05/21/24 08:46 Active Medications Active Medications: Current Medications Generic Name Dose Route Start Last Admin Trade Name Freq PRN Reason Stop Dose Admin Vancomycin HCl 1,000 mg in 200 mls @ 200 mls/hr 06/03/24 09:00 Vancomycin IV 06/03/24 09:59 PREOP ONE Lactated Ringer's 1,000 mls @ 15 mls/hr 06/03/24 07:15 IV .Q48H NOBLE PFSH Medical History Pancreatic insufficiency Wears hearing aid Wears glasses Post-menopausal Microscopic colitis Shortness of breath on exertion Non-smoker History of stress test Fecal incontinence Internal hemorrhoids Insomnia Fasciitis Anxiety Home Medications ?Medication ?Instructions ?Recorded ?Last Taken ?Type calcium carbonate 600 mg PO DAILY 04/02/22 Unknown History colestipol 1 gram tablet 2 g (2 x 1 gram) PO BID #120 tabs 05/03/24 Unknown Rx duloxetine 20 mg capsule,delayed 20 mg PO SUMOWETH 05/21/24 Unknown History release ktzaza-cdintmin-thvedwy 2 cap PO 4X/DAY 05/21/24 Unknown History 40,000-126,000-168,000 unit capsule, delay rel (Zenpep) Allergy/AdvReac Type Severity Reaction Status Date / Time No Known Allergies Allergy Verified 05/21/24 08:41 Surgical History Hx of colonoscopy H/O total hysterectomy Tubal ligation status History of cataract extraction Social History Smoking Status: Never smoker alcohol intake: current alcohol intake frequency: a few times a month Review of Systems (Anesthesia) ROS Narrative System reviewed and no additional complaints, except as documented.
[2024-06-03] MEDS: Lactated Ringers 1,000 ML 15 ML IV (07:51)
[2024-06-03] MEDS: Vancomycin IV 1,000 MG/200 ML BAG 200 MG IV (07:51)
[2024-06-03 07:54] VITALS: BP 124/70; PULSE 67; RESP 16; TEMP 36.1; O2SAT 96; BMI 23.8
--- NOTE | 2024-06-03 08:00 | RAD_ITS ---
STUDY: X-RAY - PELVIS REASON FOR EXAM: Female, 78 years old. Intraprocedural digital documentation views. TECHNIQUE: 4 intraprocedural digital documentation views. COMPARISON: None. FINDINGS: 4 intraprocedural digital documentation views show catheter placement over the lower sacrum on the left. RAD/Pelvis 1 or 2 Views IMPRESSION: Intraprocedural digital documentation images. Electronically Signed: Neeraj Hwang MD at 11:27 EDT ,
--- NOTE | 2024-06-03 08:11 | DCINST_ITS ---
Discharge Instructions Diet Discharge Diet: No restrictions Activity Discharge Activity: May Not Shower (No tub bathing, swimming, hot tubs) Dressing / Incision Call your doctor if your incision/area has: Continuous Slow Oozing, Sudden Increased Bleeding, Increased Pain/ Swelling and Foul Smelling Discharge Call your doctor if you observe: Fever of 101 or Higher, Inability to urinate and Inability to have a bowel movement Change Dressing in: do not change dressing Remove Dressing in: do not remove dressing Cleanse incision/area with: Keep Dressing Clean & Dry Additional Dressing/Incision Instructions:: Call the office with any concerns Follow Up Care Please Follow Up With: Lilia Aly MD When: The office will call to make follow-up arrangements. Test Results: Test results from this visit will be discussed in further detail at your follow- up appointment, if applicable. Discharge Plan Admission Attending Provider: Lilia Aly Primary Care Provider: Em Barrett Instructions Print Language: Pashto Discharge Orders/Prescriptions Prescriptions: New oxycodone-acetaminophen [Percocet] 5-325 mg tablet 1 tab PO Q8H PRN (Reason: pain) 3 Days Qty: 10 0RF cephalexin [cephalexin] 500 mg capsule 500 mg PO Q12 3 Days Qty: 6 0RF Continued calcium carbonate 600 mg calcium (1,500 mg) tablet 600 mg PO DAILY duloxetine 20 mg capsule,delayed release(DR/EC) 20 mg PO SUMOWETH Zenpep 40,000-126,000- 168,000 unit capsule,delayed release(DR/EC) 2 cap PO 4X/DAY Rx Instructions: Take 2-3 caps with meals and 1-2 caps with snacks Max 10 caps per day colestipol 1 gram tablet 2 g PO BID Qty: 120 1RF Referrals / Follow Up: Em Barrett MD [Primary Care Provider] - Disposition Disposition (needs filled in before D/C Order can be placed): Home, Self Care
--- NOTE | 2024-06-03 08:16 | PCM.OPRPT ---
Report of Operation Date of Procedure: 06/03/24 Pre-Operative Diagnosis: Fecal incontinence Post-Operative Diagnosis: Same Surgery/Procedure Performed:: Axonics stage I Surgeon: Lilia Aly Type of Anesthesia: MAC Specimen's removed: None Estimated Blood Loss (mL): 5 cc Description of Procedure: The patient is a 78-year-old female with fecal incontinence with episodes daily. She has failed conservative management and now presents for Axonics stage I trial. Informed consent was obtained. The patient was taken to the operating room placed on the operating room table in a prone position. She was appropriately padded and secured to the table. Anesthesia monitored the head, neck, airway, IV access and vital signs throughout the case. Once anesthesia was appropriately administered, she was was prepped and draped in usual sterile fashion. At this time, the C arm was used to outline her sacral anatomy. The area overlying the S3 foramen on her left side was infiltrated with local anesthetic. The needle was then passed through the skin into the S3 foramen as confirmed by stimulation with moi response. At this time, the needle obturator was removed and a guidewire was passed. A small incision in the skin was then made and the dilator was passed over the guidewire. At this time the obturator of the dilator was removed and the lead was placed into position. After multiple repositionings, there was response achieved on all 4 leads. Imaging was taken in both AP and lateral views and the lead was left in situ with removal of the dilator sheath. The pocket site was identified on the patient's left side and the area was infiltrated with local anesthetic. A 1.5 to 2 cm incision was then made and hemostasis was obtained with cautery. The lead was tunneled into this pocket site where it was cleaned and inserted into the lead extension. This was then tunneled to the contralateral side. The lead extension was then secured to the skin. It was then inserted into the battery. The skin incisions were closed with 3-0 interrupted Vicryl followed by 4-0 Monocryl. This was used in subcuticular closure. Skin glue was then applied to the incisions. Steri-Strips and suture were used to secure the lead extension. A drain sponge was applied and an OpSite was used to secure the battery into position. Strong cloth securing tape was then placed over the top. The patient was then awakened and taken to the recovery room in good condition. There were no complications during this procedure. Grafts/Implants Used: Axonics lead and lead extension Complications None Admit VTE Documentation VTE Present on Admission: No VTE Mechan Device Prophylaxis: None VTE Pharm Prophylaxis ordered?: No Reason prophylaxis not ordered:: Treatment Not Indicated
[2024-06-03] MEDS: Lidocaine 1% /Epi 1:100 (20ml) 20 ML Vial (09:50)
[2024-06-03 10:16] VITALS: BP 122/63; BP 124/70; PULSE 73; RESP 16; TEMP 36.5; O2SAT 98
--- NOTE | 2024-06-03 10:19 | PCM.POST.ANE ---
Anesthesia: Postop Eval I Current Vital Signs Temperature: 97.1 F Pulse Rate: 72 Blood Pressure: 122/63 Respiratory Rate: 14 Pulse Ox: 100 Oxygen Delivery Method: Room Air Assessment Airway patent: Yes Spontaneous unlabored respirations: Yes Mental status: Asleep nausea: No Vomiting: No Anesthesia Complication: No Fluid Hydration Crystalloid volume administer (ml): 900 Total IV fluid infused: 900 Progress Note Anesthesia document: Postop Eval 1 completed: Yes
[2024-06-03 10:20] VITALS: BP 122/63; BP 122/72; BP 124/70; PULSE 72; PULSE 75; PULSE 77; RESP 14; RESP 16; TEMP 36.2; O2SAT 100; O2SAT 99
--- NOTE | 2024-06-03 10:27 | POSTOPAN2_ITS ---
Anesthesia Postop Eval I Sum Postop Eval Completion status Anesthesia document: Postop Eval 1 completed: Yes Anesthesia Postop Eval I Summary Anesthesia Postop Eval I Summary: Anesthesia Postop Eval I: Assessment Summary Airway patent Yes 06/03/24 10:20 REPAIR COIL [email or web address] Spontaneous unlabored Yes 06/03/24 10:20 REPAIR COIL WINDER.[email or web address] respirations Mental status Asleep 06/03/24 10:20 REPAIR COIL WINDER.[email or web address] nausea No 06/03/24 10:20 REPAIR COIL WINDER.GDOTT Vomiting No 06/03/24 10:20 REPAIR COIL WINDER.GDOTT Anesthesia Postop Eval I: Fluid Summary Crystalloid volume administer 900 06/03/24 10:20 REPAIR COIL WINDER.GDOTT (ml) Colloids volume administered ( ml) Blood Product volume administered (ml) Total IV fluid infused 900 06/03/24 10:20 REPAIR COIL WINDER.GDOTT Anesthesia Postop Eval I: Summary Notes Anesthesia Complication No 06/03/24 10:20 REPAIR COIL WINDER.GDOTT Anesthesia Complication Comment: Post-operative progress note Anesthesia: Postop Eval II Evaluation Mental status: Awake Pain Level: 0 nausea: No Vomiting: No
--- NOTE | 2024-06-03 10:27 | PCM.POSTANE2 ---
Anesthesia Postop Eval I Sum Postop Eval Completion status Anesthesia document: Postop Eval 1 completed: Yes Anesthesia Postop Eval I Summary Anesthesia Postop Eval I Summary: Anesthesia Postop Eval I: Assessment Summary Airway patent Yes 06/03/24 10:20 PATRIOT MISSILE AIR DEFENSE ARTILLERY.[email or web address] Spontaneous unlabored Yes 06/03/24 10:20 PATRIOT MISSILE AIR DEFENSE ARTILLERY.GDOTT respirations Mental status Asleep 06/03/24 10:20 PATRIOT MISSILE AIR DEFENSE ARTILLERY.GDOTT nausea No 06/03/24 10:20 PATRIOT MISSILE AIR DEFENSE ARTILLERY.GDOTT Vomiting No 06/03/24 10:20 PATRIOT MISSILE AIR DEFENSE ARTILLERY.GDOTT Anesthesia Postop Eval I: Fluid Summary Crystalloid volume administer 900 06/03/24 10:20 PATRIOT MISSILE AIR DEFENSE ARTILLERY.GDOTT (ml) Colloids volume administered ( ml) Blood Product volume administered (ml) Total IV fluid infused 900 06/03/24 10:20 PATRIOT MISSILE AIR DEFENSE ARTILLERY.GDOTT Anesthesia Postop Eval I: Summary Notes Anesthesia Complication No 06/03/24 10:20 PATRIOT MISSILE AIR DEFENSE ARTILLERY.GDOTT Anesthesia Complication Comment: Post-operative progress note Anesthesia: Postop Eval II Evaluation Mental status: Awake Pain Level: 0 nausea: No Vomiting: No
[2024-06-03 10:30] VITALS: BP 113/70; BP 124/70; PULSE 71; RESP 16; O2SAT 97
[2024-06-03 10:40] VITALS: BP 109/65; BP 124/70; PULSE 66; RESP 16; TEMP 36.3; O2SAT 98
[2024-06-03 10:47] VITALS: BP 124/70
== END 2024-06-03 11:15 | disposition home or self-care (01) ==
LOC: SDC 07:08 → AC 07:09
PROVIDERS: PCP Family Medicine; Referring Provider Urology; Visit Provider Urology
PROC: (CPT 64561; principal; 2024-06-03 08:50)
DX: R15.9 Full incontinence of feces (principal); Z98.51 Tubal ligation status; Z90.710 Acquired absence of both cervix and uterus; K59.09 Other constipation; F41.9 Anxiety disorder, unspecified; N95.2 Postmenopausal atrophic vaginitis
CPT/HCPCS: 64561; 72170; 76000; J7120; J2405

== ENCOUNTER 2024-06-17 10:15 | Day surgery (SDC) | payer OTHER, MEDICARE, SELFPAY ==
[2024-06-17] VITALS (9 sets, daily range): BP systolic 93–129; BP diastolic 55–84; PULSE 67–77; RESP 16–18; TEMP 36.1–36.4; O2SAT 94–100; BMI 23.6
[2024-06-17] MEDS: Vancomycin IV 1,000 MG/200 ML BAG 200 MG IV (11:07)
[2024-06-17] MEDS: Lactated Ringers 1,000 ML 15 ML IV (11:08)
--- NOTE | 2024-06-17 11:43 | PCM.PRE.AN2 ---
ASA Classification* ASA Classification ASA Classification: 2 Assessment & Plan Anesthesia* Anesthesia Assessment Anesthesia Assessment: Discussed sedation and/or anesthesia options, risks, benefits, and alternatives with patient/parents/legal guardian/POA. Questions invited. The patient/parents/legal guardian/POA seems to understand and agrees to proceed with anesthesia plan. Reviewed the physical assessment, medical history, allergy history and patient home medications list prior to surgery/procedure/anesthetic and documented any changes. Performed airway and anesthesia risk assessments. Anesthesia Type Anesthesia Type: MAC History Source History Obtained from:: Patient and Chart Anesthesia Focused Assessment* Temperature: 97 F Pulse Rate: 67 Blood Pressure: 129/84 Respiratory Rate: 16 Pulse Ox: 100 Oxygen Delivery Method: Room Air Airway Assessment Mouth opens: >3 cm Mallampati Score: IV Teeth Condition: Caps/Crowns (Patient has multiple crowns on her molars. All the crowns are tight.) Neck Range of motion (ROM): Full ROM Focused Labs Anesthesia Preop lab: CBC WBC 5.4 K/mm3 (4.4-11.0) 09/16/23 08:35 RBC 4.35 M/mm3 (4.2-5.4) 09/16/23 08:35 Hgb 13.4 g/dL (12.0-15.0) 09/16/23 08:35 Hct 41.7 % (37-47) 09/16/23 08:35 Plt Count 254 K/mm3 (150-450) 09/16/23 08:35 CHEMISTRY Potassium 3.7 mmol/L (3.5-5.1) 09/16/23 08:35 Sodium 140 mmol/L (136-145) 09/16/23 08:35 BUN 11 mg/dL (7-18) 09/16/23 08:35 Creatinine 0.80 mg/dL (0.55-1.02) 09/16/23 08:35 Glucose 83 mg/dL (74-106) 09/16/23 08:35 TSH 3.26 uIU/mL (0.358-3.74) 09/16/23 08:35 COAG Pre-Assessment Diagnosis/Proposed Procedure Planned Operative Procedure(s): (N/A) Axonics Stage 2 Anesthesia History Anesthesia History - radio electronics officer: Anesthesia History - radio electronics officer Hx Hospitalization Yes 06/10/24 13:00 Any Problems With Anesthesia No 06/10/24 13:00 Cholinesterase deficiency No 06/10/24 13:00 You/Your Family Experience No 06/10/24 13:00 fever (hyperthermia) with Relationship Recent Exposure to Contagious No 06/17/24 10:54 Disease Does patient have nerve No 06/10/24 13:00 stimulator Patient instructed to have device shut off --Does patient have Pacemaker No 06/17/24 10:54 or ICD? When Was Last Pacemaker Check QUESTION #4 FULL TEXT: You/Your Family Experience fever (hyperthermia) with Anesthesia Last Oral Intake Last Oral intake: Last Oral Intake NPO since 06:00 06/17/24 10:54 Meds taken in AM with sips of water? Meds patient instructed to take am of surgery Any additional information?: Yes NPO since: 06:00 (Patient had coffee and water at 6 AM.) PONV PONV - radio electronics officer: PONV - radio electronics officer Female Yes 06/10/24 13:00 HX of Motion Sickness No 06/10/24 13:00 HX of N/V After Surgery No 06/10/24 13:00 Non-Smoker Yes 06/10/24 13:00 Duration of Surgery greater Yes 06/10/24 13:00 than 60 minutes Number of Risk Factors 3 06/10/24 13:00 PONV Score Moderate Risk 06/10/24 13:00 Height & Weight Height & Weight: Anesthesia: Height & Weight Height 5 ft 4 in 06/17/24 10:54 Weight: 62.596 kg 06/17/24 10:54 Body Mass Index (BMI) 23.6 06/17/24 10:54 Respiratory Assessment Respiratory Assessment - radio electronics officer: Respiratory Tract Infection Hx - radio electronics officer Hx Respiratory Tract Infection No 06/10/24 13:00 STOP Sleep Apnea STOP Sleep Apnea - radio electronics officer: STOP Sleep Apnea - radio electronics officer Hx Hypertension No 06/10/24 13:00 Hx Sleep Apnea No 06/10/24 13:00 CPAP BIPAP Do you snore loudly (louder No 06/10/24 13:00 than talking or can be heard Do you often feel tired/ No 06/10/24 13:00 fatigued/ sleepy during daytime? Has anyone observed you stop No 06/10/24 13:00 breathing during sleep? STOP Results Negative 06/10/24 13:00 QUESTION #5 FULL TEXT : Do you snore loudly (louder than talking or can be heard through closed doors)? Tobacco Use History Tobacco Use History - radio electronics officer: Tobacco Use History - radio electronics officer Tobacco Use Smoking Status Never smoker 06/10/24 13:00 Hx Tobacco Use No 06/10/24 13:00 Years Smoking Packs Smoked per Day Smoking Cessation Date was within the last 15 years Hx Smoking Cessation Date Hx Smoking Cessation Counseling Hematologic Medial History Hematologic Hx - radio electronics officer: Hematologic Medical Hx - glass embosser Hx of Blood Transfusion No 06/10/24 13:00 Hx of Transfusion in last 3 No 06/10/24 13:00 Months Date of Last Transfusion (if within last 3 months) Ever experience any problems No 06/10/24 13:00 with transfusion(s)? Specify any problems Hx of Preganancy in last 3 N/A 06/10/24 13:00 Months Nurse Filling Out Transfusion NBUCHER 06/10/24 13:00 & Questions: Date: 06/10/24 06/10/24 13:00 Time: 13:01 06/10/24 13:00 Patient unable to answer at this time (ie. confused, unrespo /Reproduction History /Reproductive History - radio electronics officer: /Reproductive Hx- radio electronics officer Hx Now Gestational Age (in weeks): EDC: Hx Hx Para Hx Section SAB No 06/10/24 13:00 Active Medications Active Medications: Current Medications Generic Name Dose Route Start Last Admin Trade Name Freq PRN Reason Stop Dose Admin Vancomycin HCl 1,000 mg in 200 mls @ 200 mls/hr 06/17/24 12:00 06/17/24 11:07 Vancomycin IV 06/17/24 12:59 200 mls/hr PREOP ONE Administration Lactated Ringer's 1,000 mls @ 15 mls/hr 06/17/24 10:45 06/17/24 11:08 IV 15 mls/hr .Q48H NOBLE Administration PFSH Medical History Pancreatic insufficiency Wears hearing aid Wears glasses Post-menopausal Microscopic colitis Shortness of breath on exertion Non-smoker History of stress test Fecal incontinence Internal hemorrhoids Insomnia Fasciitis Anxiety Home Medications ?Medication ?Instructions ?Recorded ?Last Taken ?Type calcium carbonate 600 mg PO DAILY 04/02/22 06/02/24 History colestipol 1 gram tablet 2 g (2 x 1 gram) PO BID #120 tabs 05/03/24 06/02/24 Rx duloxetine 20 mg capsule,delayed 20 mg PO SUMOWETH 05/21/24 06/02/24 History release sbdlxv-pjsldpnj-ljogugv 2 cap PO 4X/DAY 05/21/24 06/02/24 History 40,000-126,000-168,000 unit capsule, delay rel (Zenpep) cephalexin 500 mg capsule 500 mg PO Q12 post-operative 3 06/03/24 Unknown Rx days #6 CAPSULES oxycodone-acetaminophen 5 mg-325 1 tab PO Q8H PRN pain 3 days #10 06/03/24 Unknown Rx mg tablet (Percocet) tabs Allergy/AdvReac Type Severity Reaction Status Date / Time No Known Allergies Allergy Verified 06/17/24 10:53 Surgical History Hx of colonoscopy H/O total hysterectomy Tubal ligation status History of cataract extraction Social History Smoking Status: Never smoker alcohol intake: current alcohol intake frequency: a few times a month Review of Systems (Anesthesia) ROS Narrative System reviewed and no additional complaints, except as documented.
[2024-06-17] MEDS: Lidocaine 1% /Epi 1:100 (50ml) 50 ML VIAL (14:35)
--- NOTE | 2024-06-17 14:55 | DCINST_ITS ---
Discharge Instructions Diet Discharge Diet: No restrictions Activity Discharge Activity: May Not Shower (until Friday morning.) May resume sexual activity in: 2 weeks Dressing / Incision Call your doctor if your incision/area has: Continuous Slow Oozing, Sudden Increased Bleeding, Increased Pain/ Swelling, Increased Redness, Foul Smelling Discharge and Swelling at the incision site Call your doctor if you observe: Fever of 101 or Higher, Inability to urinate and Inability to have a bowel movement Suture Line Care: Avoid Pulling/Pushing and Avoid Pinching/Bending Change Dressing in: do not change dressing Remove Dressing in: leave until fall off Additional Dressing/Incision Instructions:: Do not remove the skin glue Follow Up Care Please Follow Up With: Lilia Aly MD When: The office will call for follow-up instructions Test Results: Test results from this visit will be discussed in further detail at your follow- up appointment, if applicable. Discharge Plan Admission Attending Provider: Lilia Aly Primary Care Provider: Em Barrett Instructions Print Language: Spanish Discharge Orders/Prescriptions Prescriptions: New oxycodone-acetaminophen [Percocet] 5-325 mg tablet 1 tab PO Q8H PRN (Reason: pain) 3 Days Qty: 10 0RF cephalexin 500 mg capsule 500 mg PO Q12 3 Days Qty: 6 0RF Continued calcium carbonate 600 mg calcium (1,500 mg) tablet 600 mg PO DAILY duloxetine 20 mg capsule,delayed release(DR/EC) 20 mg PO [facility] Zenpep 40,000-126,000- 168,000 unit capsule,delayed release(DR/EC) 2 cap PO 4X/DAY Rx Instructions: Take 2-3 caps with meals and 1-2 caps with snacks Max 10 caps per day oxycodone-acetaminophen [Percocet] 5-325 mg tablet 1 tab PO Q8H PRN (Reason: pain) 3 Days Qty: 10 0RF cephalexin 500 mg capsule 500 mg PO Q12 3 Days Qty: 6 0RF colestipol 1 gram tablet 2 g PO BID Qty: 120 1RF Referrals / Follow Up: Em Barrett MD [Primary Care Provider] - Disposition Disposition (needs filled in before D/C Order can be placed): Home, Self Care
--- NOTE | 2024-06-17 14:58 | PCM.POST.ANE ---
Anesthesia: Postop Eval I Current Vital Signs Temperature: 97.2 F Pulse Rate: 72 Blood Pressure: 93/55 Respiratory Rate: 16 Pulse Ox: 95 Oxygen Delivery Method: Room Air Assessment Airway patent: Yes Spontaneous unlabored respirations: Yes Mental status: Awake and Calm nausea: No Vomiting: No Anesthesia Complication: No Fluid Hydration Crystalloid volume administer (ml): 500 Total IV fluid infused: 500 Progress Note Anesthesia document: Postop Eval 1 completed: Yes
--- NOTE | 2024-06-17 14:58 | PCM.OPRPT ---
Report of Operation Date of Procedure: 06/17/24 Pre-Operative Diagnosis: Fecal incontinence Post-Operative Diagnosis: Same Surgery/Procedure Performed:: Axonics stage II Surgeon: Lilia Aly Type of Anesthesia: MAC Description of Procedure: The patient is a 78-year-old female who had a successful trial with stage I Axonics now presents for implant of her battery. Informed consent was obtained. The patient was taken to the operating room and placed in a prone position on the operating room table. She was appropriately padded and secured to the table. Anesthesia monitored the head, neck, airway, IV access and vital signs throughout the case. Once anesthesia was appropriately administered she was prepped and draped in usual sterile fashion. The incision of the pocket site was infiltrated very carefully with lidocaine and then opened with a knife. A hemostat was used to open the incision and carefully identify the lead extension which was brought into the operative field. Using a torque wrench, the lead was removed from the lead extension. The lead extension was then cut with suture scissors and removed from underneath the drape. The pocket site was enlarged carefully using a knife, blunt dissection and cautery for hemostatic control. Once the pocket site was large enough, the lead was dried and inserted into the battery and secured using the torque wrench. The battery was placed into the pocket site and good positioning. The pocket was closed using 3-0 interrupted Vicryl suture followed by 4-0 Monocryl subcuticular suture and then skin glue was applied. The patient was then awakened and taken to the recovery room in good condition. There were no complications during this procedure. Grafts/Implants Used: Axonics battery Complications None Admit VTE Documentation VTE Present on Admission: Yes VTE Mechan Device Prophylaxis: SCD's VTE Pharm Prophylaxis ordered?: No Reason prophylaxis not ordered:: Treatment Not Indicated
--- NOTE | 2024-06-17 16:51 | POSTOPAN2_ITS ---
Anesthesia Postop Eval I Sum Postop Eval Completion status Anesthesia document: Postop Eval 1 completed: Yes Anesthesia Postop Eval I Summary Anesthesia Postop Eval I Summary: Anesthesia Postop Eval I: Assessment Summary Airway patent Yes 06/17/24 14:58 COMPUTER SUPPORT SPECIALIST.[email or web address] Spontaneous unlabored Yes 06/17/24 14:58 COMPUTER SUPPORT SPECIALIST.[email or web address] respirations Mental status Awake,Calm 06/17/24 14:58 COMPUTER SUPPORT SPECIALIST.GIOVANYOBSean nausea No 06/17/24 14:58 COMPUTER SUPPORT SPECIALIST.GIOVANYOBSean Vomiting No 06/17/24 14:58 COMPUTER SUPPORT SPECIALIST.GIOVANYOBSean Anesthesia Postop Eval I: Fluid Summary Crystalloid volume administer 500 06/17/24 14:58 COMPUTER SUPPORT SPECIALIST.GIOVANYOBY (ml) Colloids volume administered ( ml) Blood Product volume administered (ml) Total IV fluid infused 500 06/17/24 14:58 COMPUTER SUPPORT SPECIALIST.RUKHSANA Anesthesia Postop Eval I: Summary Notes Anesthesia Complication No 06/17/24 14:58 COMPUTER SUPPORT SPECIALIST.RUKHSANA Anesthesia Complication Comment: Post-operative progress note Anesthesia: Postop Eval II Evaluation Mental status: Awake and Calm Pain Level: 1 nausea: No Vomiting: No Complications Anesthesia Complication: No
--- NOTE | 2024-06-17 16:51 | PCM.POSTANE2 ---
Anesthesia Postop Eval I Sum Postop Eval Completion status Anesthesia document: Postop Eval 1 completed: Yes Anesthesia Postop Eval I Summary Anesthesia Postop Eval I Summary: Anesthesia Postop Eval I: Assessment Summary Airway patent Yes 06/17/24 14:58 STORE DIRECTOR.[email or web address] Spontaneous unlabored Yes 06/17/24 14:58 STORE DIRECTOR.[email or web address] respirations Mental status Awake,Calm 06/17/24 14:58 STORE DIRECTOR.[email or web address] nausea No 06/17/24 14:58 STORE DIRECTOR.[email or web address] Vomiting No 06/17/24 14:58 STORE DIRECTOR.GIOVANYOBSean Anesthesia Postop Eval I: Fluid Summary Crystalloid volume administer 500 06/17/24 14:58 STORE DIRECTOR.[email or web address] (ml) Colloids volume administered ( ml) Blood Product volume administered (ml) Total IV fluid infused 500 06/17/24 14:58 STORE DIRECTOR.[email or web address] Anesthesia Postop Eval I: Summary Notes Anesthesia Complication No 06/17/24 14:58 STORE DIRECTOR.[email or web address] Anesthesia Complication Comment: Post-operative progress note Anesthesia: Postop Eval II Evaluation Mental status: Awake and Calm Pain Level: 1 nausea: No Vomiting: No Complications Anesthesia Complication: No
== END 2024-06-17 16:15 | disposition home or self-care (01) ==
LOC: SDC 10:16 → AC 10:20
PROVIDERS: PCP Family Medicine; Referring Provider Urology; Visit Provider Urology
PROC: (CPT 64590; principal; 2024-06-17 11:50)
DX: R15.9 Full incontinence of feces (principal); Z98.51 Tubal ligation status; Z90.710 Acquired absence of both cervix and uterus; N95.2 Postmenopausal atrophic vaginitis
CPT/HCPCS: 64590; 00300; J7120; J2405

== ENCOUNTER → 2024-07-15 | Outpatient (CLI) | payer OTHER, MEDICARE, SELFPAY ==
--- NOTE | 2024-07-15 07:22 | BI_ITS ---
MAMMOGRAPHY - BILATERAL SCREENING REASON FOR EXAM: Female, 79 years old. Routine annual screening examination. PERTINENT HISTORY: Non-contributory. TECHNIQUE: Digital bilateral breast nikolai (3D mammographic acquisition) in the CC and MLO projections. 2-D mediolateral oblique (MLO) and craniocaudad (CC) views of both breasts were obtained. CAD: Full Field Digital Mammography with Computer Added Detection was performed. COMPARISON: Comparison is made with prior study dated July 09, 2023 and July 01, 2022. FINDINGS: Breast Composition: The breasts are heterogeneously dense, which may obscure small masses. There are no dominant masses or suspicious calcifications. No other significant abnormalities are identified. There has been no significant change since the prior study. BI/SCRN MAMM (CAD)W/NIKOLAI BILAT IMPRESSION: Stable bilateral screening mammogram. Yearly follow-up mammogram recommended. (A) ASSESSMENT CATEGORY: BIRADS Category 1: Negative. A letter regarding these results will be sent to the patient by the facility within 30 days. Approximately 10% of breast cancers are not detected by mammography. A normal mammogram should not delay biopsy of a clinically suspicious abnormality. [id number] Electronically Signed: Antony Acevedo MD at 9:42 EDT ,
[2024-07-15 08:24] LABS: Erythrocyte Sedimentation Rate 11 mm/hr (0-30)
[2024-07-15 10:57] LABS: CRP 3.33 mg/L (0.0-3.0)
== END | disposition home or self-care (01) ==
PROVIDERS: Internal Medicine Gastroenterology; PCP Family Medicine; Referring Provider Family Medicine; Visit Provider Family Medicine
DX: Z12.31 Encounter for screening mammogram for malignant neoplasm of breast (principal)
CPT/HCPCS: 36415; 77063; 77067; 85652; 86140

== ENCOUNTER → 2024-07-21 | Outpatient (CLI) | payer OTHER, MEDICARE, SELFPAY ==
[2024-07-24 00:07] LABS: Pancreatic Elastase, Fecal 594 (>200)
== END | disposition home or self-care (01) ==
PROVIDERS: PCP Family Medicine; Referring Provider Internal Medicine Gastroenterology; Visit Provider Internal Medicine Gastroenterology
DX: R32 Unspecified urinary incontinence (principal); K86.81 Exocrine pancreatic insufficiency
CPT/HCPCS: 82653

== ENCOUNTER → 2024-08-31 | Outpatient (CLI) | payer OTHER, MEDICARE, SELFPAY ==
--- NOTE | 2024-08-31 13:59 | BD_ITS ---
STUDY: DUAL ENERGY X-RAY ABSORPTIOMETRY / DXA REASON FOR EXAM: Female, 79 years old. V76.12ScreeningBONE DENSITY REASON FOR EXAM TECHNIQUE: Bone Mineral Density (BMD) measurements of lumbar spine and bilateral hips were obtained. COMPARISON: Comparison is made with prior study dated July 25, 2020. FINDINGS: Lumbar Spine (L1-L4): g/cm2 (0.954) / T-score (-0.8) / Z-score (1.7) Findings are suggestive of normal bone density with a low fracture risk. Left Femur Total: g/cm2 (0.840) / T-score (-0.8) / Z-score (1.1) Left Femoral Neck: g/cm2 (0.710) / T-score (-1.3) / Z-score (0.9) Right Femur Total: g/cm2 (0.832) / T-score (-0.9) / Z-score (1.0) Right Femoral Neck: g/cm2 (0.740) / T-score (-1.0) / Z-score (1.2) The T-Scores on the most recent prior examination were: Lumbar Spine (L1-L4): There has been worsening of bone density since the previous examination. Left Femur Total: which represents a worsening of 5.1%. Right Femur Total: which represents a worsening of 4.1%. BD/Dexa Bone Density Study IMPRESSION: The patient is considered osteopenic as outlined below according to World Daniel Organization (WHO) criteria with a low fracture risk. There has been worsening of bone density since the previous examination. Reference Information: The T-score is the number of standard deviations above or below the standard which is normal for young adults at their peak bone mineral density. The World Health Organization (WHO) interprets the T-scores as follows: Above -1 Normal bone density Between -1 and -2.5 Osteopenia Equal to / or below -2.5 Osteoporosis As a practical clinical guideline, osteopenia may be graded as follows: Mild -1 through -1.5 Moderate -1.6 through -2.0 Severe -2.1 through -2.4 The Z-score is the number of standard deviations above or below age-matched controls. A Z-score of less than -1.5 would be considered abnormal. References: 1. NIH Osteoporosis and Related Bone Diseases www osteo.org 2. International Society for Clinical Densitometry www iscd.org 3. National Osteoporosis Foundation www nof.org Electronically Signed: Antony Acevedo MD at 14:49 EST ,
== END | disposition home or self-care (01) ==
LOC: OPBD 13:55
PROVIDERS: PCP Family Medicine; Referring Provider Nurse Practitioner Family; Visit Provider Nurse Practitioner Family
DX: Z13.820 Encounter for screening for osteoporosis (principal); M85.88 Other specified disorders of bone density and structure, other site
CPT/HCPCS: 77080

== ENCOUNTER 2024-11-05 09:00 | Outpatient (RCR) | payer OTHER, MEDICARE, SELFPAY ==
--- NOTE | 2024-09-27 18:51 | HP.PTEVAL ---
Patient's Visit Information Visit Information Visit Information: ROSHAN NEW is a 79 year old F referred to Physical Therapy by Dr. Lilia Aly MD with a diagnosis of PELVIC PAIN. Date of Evaluation: 09/27/24 Physical Therapist: Danielle Duff, PT, Cert MDT Visit Plan Frequency: 1x/Week Duration: 2-4 Months Plan: MANUAL PF THERAPY FOR LENGTHENING/RELAXATION AND DOWN TRAINING. HEALTHY BLADDER HABIT EDUCATION. CORE STRENGTHENING. ROSIE LE ROM, STRETCHING AND STRENGTHENING. HEALTHY BACK HABIT EDUCATION. POSTURE TRAINING/EDUCATION TO DECREASE PELVIC PAIN. Subjective Subjective: Work/Leisure: [employer] ABOUT 30 HRS A WEEK. Present symptoms: THIS PATIENT PRESENTS TO PT WITH C/O DISCOMFORT IN VAGINAL AREA FROM MUSCLE TIGHTNENING. Present since: JUL 2024 (AWHILE AFTER THE IMPLANT - AXONICS) Pain Scale: WORST 2/10, LEAST 0/10 Currently: 0/10 Is it getting better, worse or staying the same: STAYING THE SAME Commenced as a result of: NO APPARENT REASON Symptoms at onset: SAME BUT PROVOKED BY DIFFERENT ACTIVITIES Worse: SITTING AT [place] AND ON OTHER HARD SURFACES AT FIRST BUT NOW STANDING AND WALKING A LOT. THE DAY PROGRESSES. Better: FIRST THING IN THE MORNING, AFTER DR. ALY WORKED THE MUSCLES. SITTING DOWN Previous history/Previous treatment: AXONICS IMPLANT 06/17/24. HYSTERECTOMY 25 PLUS YRS AGO. PATIENT REPORTS 2 PREGNANCIES WITHOUT COMPLICATIONS. PT FOR BOWEL INCONTINENCE BEFORE IMPLANT X 2 - ABOUT 2 AND 5 YEARS AGO. Treatment this episode: USING PRESCRIBED MUSCLE RELAXER SUPPOSITORIES EVERY NIGHT. Gait: NORMAL OTHER: PATIENT DENIES ANY URINARY ISSUES. Prolapse (Falling out feeling): NO Frequency of Urination: ABOUT 4 TIMES DURING THE DAY AND ZERO TIMES AT NIGHT. Fluid Intake: 3-5 8oz glasses per day Ability to stop urine flow: PATIENT UNSURE Ability to initiate urine stream: YES. NO DIFFICULTY Dyspareunia: PATIENT IS NOT SEXUALLY ACTIVE. Bowel Incontinence: YES. CURRENTLY UNDER THE CARE OF DR. ADRIENNE BASURTO AND REP FROM [facility]. Unexplained weight loss: NO PMH/Recent major surgery: Pancreatic insufficiency Post-menopausal Microscopic colitis Shortness of breath on exertion Non-smoker Fecal incontinence Internal hemorrhoids Fasciitis Anxiety Hx of colonoscopy H/O total hysterectomy Tubal ligation status History of cataract extraction Objective Objective: Sitting/Standing Posture: INCREASED KYPHOSIS, INCREASED LUMBAR LORDOSIS. STANDS IN ANTERIOR PELVIC TILT. R ILIAC CREST HIGHER THAN LEFT. SLOUCHED IN SITTING. Other Observations: PATIENT IS PLEASANT AND COOPERATIVE AND IS A GOOD HISTORIAN. Sensory deficit: ROSIE LE LIGHT TOUCH SENSATION IS GROSSLY INTACT AND SYMMETRICAL. SHE REPORTS A LONG HISTORY OF BUTTOCK DECREASED SENSATION. ROM deficit: ROSIE HIP FLEX, HIP ADD, HIP ROTATOR, HS AND ANKLE TIGHTNESS. Motor deficit: ROSIE LE'S GROSSLY 4/5 Lumbar mvmt loss: flex - NIL ext - TONYA R SG - TONYA L SG - MOD Core strength: POOR Palpation: PELVIC FLOOR INCREASED MUSCLE TONE AND TRIGGER POINT TENDERNESS IN LEVATOR L>R WITH INTERNAL MANUAL VAGINAL PALPATION. FUNCTIONAL SCREEN: Incontinence Impact Questionnaire Score: 0 Urogenital Distress Inventory Score: 2 Goals Goal 1:: ABOLISH PELVIC FLOOR PAIN Goal Time Frame: 6-8 Weeks Goal 2:: PATIENT WILL COMMUNICATE A GOOD UNDERSTANDING OF HEALTHY BLADDER HABITS Goal Time Frame: 2-4 Weeks Goal 3:: PATIENT WILL BE INDEP WITH A HEP TO PROMOTE RELAXATION/LENGTHENING OF PELVIC FLOOR AND SURROUNDING TISSUE. Goal Time Frame: 6-8 Weeks Goal 4:: PATIENT WILL COMMUNICATE/DEMONSTRATE HEALTHY BACK HABITS AND BE INDEP WITH CORE STRENGTHENING EX'S TO DECREASE ON PELVIC FLOOR Goal Time Frame: 6-8 Weeks Rehabilitation Potential Physical Therapy Diagnosis: HIGH TONE PELVIC FLOOR WITH TRIGGER POINTS Rehabilitation Potential: Good Anticipated Interventions Patient/Client Instruction: Educate patient on: Condition, Plan of Care and Risk Factors For the Purpose of:: To improve self management Therapeutic Exercise to Include: Strength training, Body mechanics, Postural training, Flexibilty training, Neuromotor development and Relaxation training For the Purpose of:: To decrease pain, To improve muscle performance and motor function, To increase tolerance to activity/condition/position and To increase flexibility/ROM Manual Therapy Techniques to Include: Trigger point massage and Soft tissue mobilization For the Purpose of:: To decrease pain, To improve nutrient delivery to tissue, To improve muscle performance and motor function, To decrease soft tissue restriction and To increase flexibility/ROM Text: Thank you for the opportunity to evaluate your patient. For Medicare and Medicare HMO plans, please review the plan of care and approve it. It will need to be FAXED BACK to us at [phone] for Medicare purposes. For Medicare only, by signing this I certify the plan of care. Please let me know if there are questions or concerns regarding this plan of care. Physician Signature: Date:
== END 2024-11-05 19:00 | disposition home or self-care (01) ==
LOC: PT 09:00
PROVIDERS: PCP Family Medicine; Visit Provider Urology
DX: R10.2 Pelvic and perineal pain (principal)
CPT/HCPCS: 97140; 97162; 97530

== ENCOUNTER → 2025-07-19 | Outpatient (CLI) | payer OTHER, MEDICARE, SELFPAY ==
--- NOTE | 2025-07-19 07:45 | BI_ITS ---
EXAM: SCRN MAMM (CAD)W/NIKOLAI BILAT DATE: 07/19/2025 CLINICAL HISTORY: F, Age 80 y/o , ANNUALLY No family history. TECHNIQUE: Procedure Code: [id number] Modality: MG Procedure: SCRN MAMM (CAD)W/NIKOLAI BILAT COMPARISON: Prior exam(s) dated July 15, 2024.. FINDINGS: TISSUE DENSITY: The breasts are heterogeneously dense, which may obscure small masses. Bilateral Breast Mammographic Findings: No significant masses, calcifications or other abnormalities are identified. No suspicious masses, areas of developing architectural distortion, or suspicious calcifications. There has been no significant interval change. BI/SCRN MAMM (CAD)W/NIKOLAI BILAT IMPRESSION: Stable bilateral screening mammogram. OVERALL FINAL ASSESSMENT BI-RADS 1: NEGATIVE. RECOMMENDATION: Routine annual follow-up in 1 Year Additional Recommendation none A letter with findings and recommendations will be mailed to the patient. Reading Location: [facility]
== END | disposition home or self-care (01) ==
PROVIDERS: PCP Family Medicine; Referring Provider Family Medicine; Visit Provider Family Medicine
DX: Z12.31 Encounter for screening mammogram for malignant neoplasm of breast (principal)
CPT/HCPCS: 77063; 77067